=== PATIENT | male | born 1955 | race Caucasian/White ===

== ENCOUNTER → 2016-07-25 | Outpatient (CLI) | payer OTHER ==
[~2016-07-25] VITALS: Ht 152.4 cm; Wt 84.4 kg
[~2016-07-25] MED LIST: ADDERALL 10 MG10 MG; ADDERALL 20 MG20 MG PO; ADDERALL XR 3030 MG PO; ADVAIRDISKUS; B-12250 MCG PO; CYMBALTA; CYMBALTA PO; CYMBALTA30 MG PO; CYMBALTA60 MG PO; EXELON1 EACH TOP; FENTANYL PA12 MCG/HR TP; FENTANYL PA25 MCG/HR TP; FENTANYL PA25 MCG/HR TRANSDERM; FOLIC ACID1 MG PO; HCTZ; HYDROCHLOROTH12.5 M1; HYDROCHLOROTH12.5 MG PO; HYDROCODON-ACE1 EAC5 PO; HYDROCODON-ACE1 EAC7 PO; HYDROCODON-ACE1 EAC8 PO; HYDROCODONE-AP1 EA11 PO; HYDROCODONE-AP1 EAC6 PO; LAMICTAL PO; LAMICTAL XR100 MG PO; LAMICTAL XR200 MG PO; LISINOPRIL40 MG PO; MEDROLDOSEPACK PO; MOBIC15 MG PO; NEXIUM40 MG PO; NORCO 10-325 T1 EACH PO; PRILOSEC 20 MG20 MG; PRISTIQ50 MG PO; PROVENTIL HFA6.7 G1 INH; VITAMIN E400 UNIT; VIVANCE PO; VYVANSE60 MG PO; vivance
--- NOTE | ~2016-07-25 | HPC ---
[facility] [place] [address] PAIN MANAGEMENT CONSULTATION Name: SURY HALEY Room #: REG [facility]#: [id number] Admission: 07/25/16 Attend Phys: Halle Wesley MD Discharge: Date of : 59 Report #: [id number] THIS REPORT FOR: //name// CC: Anthony Wesley DATE OF SERVICE: 07/25/2016 FOLLOWUP COMPLAINT: "They changed my work hours. I am getting up at 3:00 in the morning. This has made it difficult for me to sleep." HISTORY OF PRESENT ILLNESS: The patient is a 61-year-old gentleman who has been followed in the pain clinic in the past because of chronic cervical radicular pain. He has been treated for cervical radiculopathy with opioid medications. He has had his scheduled changed at work. He goes to work at 3:00 in the morning. This has made sleeping quite difficult. When he wakes up in the middle of night, he finds it difficult to fall back to sleep. Overall, he feels that this scheduled will only be going for a couple of months. He would like to try an additional 5 mg of hydrocodone at night to see whether or not this would improve his ability to sleep and be more function on the daytime. PHYSICAL EXAMINATION: Blood pressure is 169/98, pulse 76, respiratory rate 16, and room air O2 saturation is 99%. The patient has pain and discomfort in the cervical area with pain radiating down into his arm on the right side shoulder as well as some left and right occipital pain and discomfort. He rates his pain as an 8/10. He has not fallen since we saw him last. He appears to be taking his medication as prescribed. IMPRESSION: Cervical radiculopathy status post surgery with continue cervical radicular pain. RECOMMENDATIONS: We will continue with the patient's current medical regimen of hydrocodone 10/325 and 5/325 for this month while he is on the new schedule. We will then revert to his schedule of 10/325 for this month and 7.5 mg daily dosing for the 2 remaining months. He will call us if he has any problems with his medications. We would like to thank you for letting us participate in his care. We hope he continues to improve. <ELECTRONICALLY SIGNED> By: Halle Wesley MD 08/26/16 [id number] Halle Weslye MD /nt
[2016-07-25 08:58] VITALS: BP 169/98
== END ==
LOC: PAIN 07:11
DX: M54.12 Radiculopathy, cervical region (principal); I10 Essential (primary) hypertension

== ENCOUNTER → 2016-11-21 | Outpatient (CLI) | payer OTHER ==
[~2016-11-21] VITALS: Ht 175.3 cm; Wt 85.7 kg
[~2016-11-21] MED LIST changes: +LAMICTAL 25 MG25 M1 PO
--- NOTE | ~2016-11-21 | HPC ---
[facility] [place] [address] PAIN MANAGEMENT CONSULTATION Name: SURY HALEY [facility] [id number] Admission: 11/21/16 Attend Phys: Halle Wesley MD Discharge: Date of : 59 Report #: [id number] THIS REPORT FOR: //name// CC: Anthony Wesley He was seen on 11/21/[address] You Wesley. PRIMARY CARE PHYSICIAN: Dr. Anthony Cardenas. FOLLOWUP COMPLAINT: Here for occipital injections. They have been helpful in the past. FOLLOWUP HISTORY: The patient is a 61-year-old gentleman who has been followed in the pain clinic because of cervical radiculopathy. He also suffers from headaches. He finds that occipital injections in the past have been helpful in decreasing the amount of pain and discomfort he had been experiencing. At this juncture, he notices headaches have increased and would like to proceed with an injection. The left side is most problematic. There is some discomfort on the right as well. He has been given scripts for his medications. He has misplaced a couple of the scripts. He will get a police report and provide that to the pain clinic at which time we will reissue medications. We have discussed with the patient the need to get medication from only one source. He should only get opioid medications from the pain clinic. The patient would like to proceed with a trigger point/infiltration and block of the left occipital nerve to help with his pain. PHYSICAL EXAMINATION: Blood pressure 158/90, pulse 113, respiratory rate 18, room air saturation 96%. Height 5 feet 9 inches, weight 85 kilograms. BMI is 27. The patient has pain and discomfort in the left occipital area with pain radiating to the bahai area and posterior eye of the pending side. He notes some soreness on the right side, but is not as problematic as the left. IMPRESSION: 1. Chronic headaches, which are exacerbated by pain in the left occipital area with pain in the parietal area. 2. History of cervical radiculopathy reasonably stable at this juncture. 3. Chronic pain in the cervical area treated with fentanyl patches 25 mcg and hydrocodone 10/325 q. 4-6 hours p.r.n. for pain control. 4. History of some depression. The patient continued to follow up with his psychiatrist/psychologist. GI irritation treated with Nexium, Pulmonary treated with Proventil inhaler. RECOMMENDATIONS: We discussed treatment options with the patient. [facility] [address] [place] [address] PAIN MANAGEMENT CONSULTATION Name: SURY HALEY Room #: REG [facility]#: [id number] Admission: 11/21/16 Attend Phys: Halle Wesley MD Discharge: Date of : 59 Report #: [id number] benefits of an occipital nerve block were again reviewed. Possible complications were discussed. The patient feels that the benefit that he has received in the past from an occipital block has been quite beneficial for a number of months and would like to proceed with another treatment. Diagnosis occipital neuralgia left. Recommendation, we will proceed with an injection of the left occipital nerve. Possible complications of the procedure were reviewed. Possible benefits of the procedure were discussed. The patient elects to proceed. PROCEDURE NOTE: The patient was placed in the prone position. His left occipital area was repaired using a chlorhexidine solution and allowed to dry. A 25-gauge needle was then advanced into the area of the left occipital nerve. The patient states that the palpation and injection were right where the pain and discomfort was located. The pain decreased as a result of the local anesthetic and steroid. Triamcinolone 40 mg and 10 mL 0.5% bupivacaine was injected. The patient's pain decreased to 4 at the time of discharge. He will follow up in the future as needed. We would like to thank you for letting us participate in his care. We hope he continues to improve. By: [id number] Halle Wesley MD /cynthia
[2016-11-21 09:55] VITALS: BP 158/90
== END ==
LOC: PAIN 07:24
DX: M54.16 Radiculopathy, lumbar region (principal); G89.29 Other chronic pain; F32.9 Major depressive disorder, single episode, unspecified

== ENCOUNTER → 2017-01-21 | Outpatient (CLI) | payer OTHER ==
[~2017-01-21] VITALS: Ht 175.3 cm; Wt 84.5 kg
[~2017-01-21] MED LIST changes: -HYDROCHLOROTH12.5 M1; +HYDROCHLOROTH12.5 M1 PO; +HYDROXYZINE HCL25 M1 PO
[2017-01-21 09:24] VITALS: BP 184/100
== END ==
LOC: PAIN 06:50
DX: Z76.0 Encounter for issue of repeat prescription (principal); R51 Headache; M54.12 Radiculopathy, cervical region; F32.9 Major depressive disorder, single episode, unspecified

== ENCOUNTER → 2017-04-10 | Outpatient (CLI) | payer OTHER ==
[~2017-04-10] VITALS: Ht 175.3 cm; Wt 85.3 kg
[~2017-04-10] MED LIST changes: +DURAGESIC25 MCG/HR TRANSDERM; +VOLTAREN GEL 1100 GM TOP
--- NOTE | ~2017-04-10 | HPC ---
[facility] [place] [address] PAIN MANAGEMENT CONSULTATION Name: SURY HALEY [facility]: [facility] [id number] Admission: 04/10/17 Attend Phys: Halle Wesley MD Discharge: Date of : 59 Report #: [id number] THIS REPORT FOR: //name// CC: Anthony Wesley DATE OF SERVICE: 04/10/2017 FOLLOWUP COMPLAINT: Here for medication renewal. FOLLOWUP HISTORY: The patient is a 62-year-old gentleman who has been seen in the pain clinic because of chronic cervical radicular pain. He also suffers from occipital neuralgia. He has had some problems with the fentanyl patches. He finds that they do not adhere as well as certain brands. He would like to have the previous brand renewed. Rates his pain as an 8/10. He notes that the pain is worse when he is sitting at a computer working and with certain movements, which required him to move his head from side to side. PHYSICAL EXAMINATION: Blood pressure 175/105, respiratory rate is 18, room air saturation is 97%, pulse 87. Height 5 feet 9 inches, weight 188 pounds, BMI is 27. The patient has pain and discomfort in the occipital portion of his neck, particularly on the left side. He notes some numbness in his hands and weakness in the affected side as well. IMPRESSION: 1. Cervical radiculopathy. 2. Myofascial pain. 3. History of occipital neuralgia. RECOMMENDATIONS: We discussed treatment options with the patient. We will provide a script for fentanyl patches, [place]ro[place], and hope that these are more efficacious. A script for hydrocodone 7.5 one p.o. q.4-6 h. has been written. The patient will call us if he has any problems with his medications. We would like to thank you for letting us participate in his care. We hope he continues to improve. By: [id number] Halle Wesley MD /MIRZA
[2017-04-10 08:50] VITALS: BP 175/105
== END | disposition home or self-care (01) ==
LOC: PAIN 06:54
DX: M54.12 Radiculopathy, cervical region (principal); M54.81 Occipital neuralgia; M79.1 Myalgia

== ENCOUNTER → 2017-07-08 | Outpatient (CLI) | payer OTHER ==
[~2017-07-08] VITALS: Ht 175.3 cm; Wt 85.1 kg
[~2017-07-08] MED LIST changes: +ALEVE220 M1 PO
--- NOTE | ~2017-07-08 | HPC ---
[facility] [place] [address] PAIN MANAGEMENT CONSULTATION Name: SURY HALEY Room #: REG [facility].#: [id number] Admission: 07/08/17 Attend Phys: Halle Wesley MD Discharge: Date of : 59 Report #: [id number] THIS REPORT FOR: //name// CC: Anthony Wesley DATE OF SERVICE: 07/08/2017 FOLLOWUP COMPLAINT: The pain has been better over the last few days. FOLLOWUP HISTORY: The patient is a 62-year-old gentleman who has been followed in the pain clinic. As you recall, he suffers from occipital pain in his neck as well as cervical radiculopathy. He has undergone epidural steroid injections in the past as needed. He continues to have pain and discomfort and finds that the fentanyl patches and hydrocodone continue to be helpful. He continues to be gainfully employed. He rates his pain as a 5 today. He continues to have some difficulty with turning his head from side to side, some shoulder pain and discomfort, some worsening of pain with changes in weather, and some exacerbation of his pain when he is sitting at a computer. He overall feels that things are going reasonably well. He is not having any problems with his medication. He states that he keeps his medications in a controlled environment. PHYSICAL EXAMINATION: Blood pressure 163/94, pulse 109, respiratory rate 16, room air saturation 97. Height 5 feet 9 inches, weight 187 pounds, BMI is 27. The patient has not fallen since we saw him last. He feels that his pain is less today. He feels that he can progress to a lower level hydrocodone. He feels that he is not needing as much at this juncture. Rather than 5 tablets per day, he feels that 4 tablets per day will be adequate and would like to decrease their use. CURRENT MEDICINE REGIMEN: Naprosyn 220 mg tablets daily, Cymbalta 60 mg, Voltaren gel, fentanyl patches 25 mcg q. 72 hours, hydrocodone 7.5 mg 1 p.o. q.4-6 hours p.r.n. pain, hydroxyzine 25 mg, Lamictal 25 mg, Vyvanse 60 mg, Nexium 40 mg, hydrochlorothiazide 12.5 mg, Proventil 2 puffs p.r.n., Advair Diskus, and Zestril 40 mg. RECOMMENDATIONS: We discussed treatment options with the patient. We have discussed the new guidelines that are coming into effect by the CDC. We will move his medications in the alloted tolerances. We will decrease his hydrocodone by one tablet and a script for hydrocodone 120 tablets 1 p.o. q.4-6 hours p.r.n. pain as well as continue with fentanyl patch 25 mcg q. [address] [address] PAIN MANAGEMENT CONSULTATION Name: SURY HALEY [facility] #: [facility] [id number] Admission: 07/08/17 Attend Phys: Halle Wesley MD Discharge: Date of : 59 Report #: [id number] We would like to thank you for letting us participate in his care. We hope he continues to improve. By: [id number] Halle Wesley MD /MIRZA
[2017-07-08 12:29] VITALS: BP 163/94
== END ==
LOC: PAIN 07:00
DX: M54.12 Radiculopathy, cervical region (principal)

== ENCOUNTER → 2017-11-20 | Outpatient (CLI) | payer OTHER ==
[~2017-11-20] VITALS: Ht 175.3 cm; Wt 93.2 kg
[~2017-11-20] MED LIST changes: +DURAGESIC1 EACH TRANSDERM; +ZANAFLEX4 MG PO
--- NOTE | ~2017-11-20 | HPC ---
[facility] [address] [address] PAIN MANAGEMENT CONSULTATION Name: SURY HALEY Room #: REG [facility] [id number] Admission: 11/20/17 Attend Phys: Halle Wesley MD Discharge: Date of : 59 Report #: [id number] THIS REPORT FOR: //name// CC: Anthony Wesley DATE OF SERVICE: 11/20/2017 FOLLOWUP COMPLAINT: Here for medication renewal. FOLLOWUP HISTORY: The patient is a 62-year-old gentleman, who has been followed in the Pain Clinic for quite a number of years. He suffers from occipital neuralgia. He also has cervical radiculopathy, which can exacerbate the occipital neuralgia. He has undergone occipital nerve blocks in the past and gleaned them very beneficial. He would like to proceed with another set of occipital nerve blocks to help decrease the amount of headaches he is experiencing. Continues to have pain and discomfort in his arms with pain that radiates down into his hands with some weakness and sensory changes. As you recall, he has had surgery in view of the anterior approach in the past. Notes that his pain can be more difficulty with changes in the weather. Sitting at a computer and other activities of daily living can exacerbate this pain and discomfort. He tries to do things of him in the most ergonomic fashion. 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 He recently changed jobs. He has had some changes in his insurance coverage. Because of the changes in his insurance, he was unable to purchase some of his medications. He was using fentanyl patches and hydrocodone. Because of the change in his insurance, he had to "stretch his medications." He would like to continue with fentanyl at 12 mcg per hour. He would also like to continue with hydrocodone 10/325. ALLERGIES: MORPHINE. CURRENT MEDICATIONS: Hydrocodone 10/325 one p.o. q.i.d., fentanyl 12 mcg q.72h., diclofenac gel topical to skin q.i.d., naproxen 220 mg, Cymbalta 60 mg, hydroxyzine 25 mg t.i.d., Lamictal 25 mg total of 50 mg daily, Vyvanse 60 mg, Nexium 40 mg, hydrochlorothiazide 12.5 mg daily, Proventil inhaler 2 puffs p.r.n., Advair Diskus daily, lisinopril 40 mg daily. PAIN CLINIC ASSESSMENT: 1. History of osteoarthritis, problems with his neck with left upper extremity pain. 2. Height 5 foot 9, weight 205 pounds, BMI is 30. 3. VITAL SIGNS: Blood pressure 168/92, pulse 83, respiratory rate 20, room air O2 saturation is 98. [address] [address] PAIN MANAGEMENT CONSULTATION Name: SURY HALEY [facility]: [facility] [id number] Admission: 11/20/17 Attend Phys: Halle Wesley MD Discharge: Date of : 59 Report #: [id number] 4. Pain intensity 8.5. 5. Fall risk. The patient has not fallen in the last 3 months. 6. Blood thinner. The patient is on her blood thinning agents. 7. History of hypertension. The patient is being treated for hypertension. 8. Opioid therapy 6 weeks. The patient is receiving opioid medications from our Pain Clinic. 9. Functional risk assessment tool is 1, which is low risk. 10. Functional assessment tool, 30/70 indicating moderate amount of discomfort and pain in regards to his activities of daily living. 11. Recreational drug use. The patient denies use of recreational drugs. 12. Tobacco: The patient has never smoked tobacco. 13. Alcohol frequency. The patient denies use of alcoholic beverages PHYSICAL EXAMINATION: GENERAL: The patient is a well-developed and well-nourished white male, appears his stated age. He is alert and oriented x 3. His affect is appropriate. Speech is fluent. HEENT: Normocephalic, atraumatic. Extraocular eye muscles intact. Sclerae nonicteric. Hearing within normal limits. Mucous membranes are moist. The patient has pain and soreness in the left as well as in the right occipital area. Palpation in these areas to increased pain and discomfort in the area with some pain radiating to the side of his head and in the perception in the back and temporal areas. NECK: Without adenopathy or JVD. Some limited rotation, flexion and extension of his neck. HEART: Regular rate without murmurs. S1, S2. LUNGS: Clear to auscultation without rhonchi or wheezing. ABDOMEN: Nontender without organomegaly. MUSCULOSKELETAL: Without significant for scoliosis, lordosis, or kyphosis. Upper extremity muscle strength is judged to be 5/5 for the most major muscle groups of the upper extremity. The patient has pain and discomfort in the arm with pain radiating down into the right C6-C7 dermatomal distribution. Lower extremity muscle strength is judged to be 5/5 for the major muscle groups with symmetry and normal sensory findings. IMPRESSION: 1. Cervical radiculopathy involving the right C5-C6 distribution with numbness and weakness down into his hands. 2. Myofascial pain. 3. History of occipital neuralgia which improves with occipital nerve blocks in the past. 4. Chronic pain treated with opioid medications. 5. History of depression in the past. 6. History of gastrointestinal irritation/gastroesophageal reflux disease. RECOMMENDATIONS: We discussed the treatment options with the patient. At this [facility] [address] [place] [address] PAIN MANAGEMENT CONSULTATION Name: SURY HALEY Room #: REG [facility]#: [id number] Admission: 11/20/17 Attend Phys: Halle Wesley MD Discharge: Date of : 59 Report #: [id number] juncture, he finds that his medications have continued to be helpful. The patient was on 25 mcg of fentanyl on a daily basis. He ran out of patches and for about the last few weeks has been without fentanyl. We will restart him at fentanyl 12 mcg q.72h. We will also provide hydrocodone 10/325 one p.o. q.i.d. We have discussed with the patient the CDC requirements for opioid medications. We will continue to try to provide as much pain benefit is possible without over shooting the CDC directives. The patient would like to undergo occipital nerve block. He noticed improvement in the occipital areas with decreased headaches and less pain after occipital nerve blocks in the past. He will return to the Pain Clinic at which time he will then undergo occipital nerve blocks to help with his pain condition. He will call us if he has any problems with his medications. We would like to thank you for letting us participate in his care. We hope he continues to improve. <ELECTRONICALLY SIGNED> By: Halle Wesley MD 11/27/17901 [id number] MD evgeny Perez
[2017-11-20 12:55] VITALS: BP 168/92
== END ==
LOC: PAIN 10-02 11:32
DX: G89.29 Other chronic pain (principal); M54.12 Radiculopathy, cervical region; M79.1 Myalgia; Z79.899 Other long term (current) drug therapy; R20.0 Anesthesia of skin; R53.1 Weakness

== ENCOUNTER → 2017-12-25 | Outpatient (CLI) | payer OTHER ==
[~2017-12-25] VITALS: Ht 175.3 cm; Wt 91.8 kg
--- NOTE | ~2017-12-25 | HPC ---
[facility] [place] [address] PAIN MANAGEMENT CONSULTATION Name: SURY HALEY Room #: REG [facility]#: [id number] Admission: 12/25/17 Attend Phys: Halle Wesley MD Discharge: Date of : 59 Report #: [id number] THIS REPORT FOR: //name// CC: Anthony Wesley DATE OF SERVICE: 12/25/2017 CHIEF COMPLAINT: Here for occipital nerve blocks. "Still having pain in back of my head and headaches". FOLLOWUP HISTORY: The patient is a 62-year-old gentleman who has been followed in the Pain Clinic because of chronic pain in the neck. He also has occipital headaches. Over time, he has undergone epidural steroid injections in the cervical area and found those beneficial. At this juncture, he is having some pain and discomfort in the left as well as the right occipital area. Right more problematic than the left. In the past when he has undergone these treatments, he has noted significant benefit from the procedure and has returned today because of the continued headache, pain in the occipital areas. He continues to take his medications as prescribed for chronic pain. He is having no problems with the medications. He feels that the hydrocodone and fentanyl are helpful. He has noted a change in the protocol regarding dispensation of his medications by his insurance company. ALLERGIES: MORPHINE. CURRENT MEDICATIONS: Hydrocodone 10/325 one p.o. q.i.d., fentanyl 12 mcg q.72 hours, diclofenac gel applied to the skin q.i.d., Naprosyn 220 mg, Cymbalta 60 mg, hydroxyzine 25 mg t.i.d., Lamictal 25 mg a total of 50 mg daily, Vyvanse 60 mg, Nexium 40 mg, hydrochlorothiazide 12.5 mg, Proventil inhaler 2 puffs p.r.n., Advair Diskus daily, and lisinopril 40 mg daily. PAIN CLINIC ASSESSMENT: 1. History of osteoarthritis in his upper extremities. The patient has not been treated for rheumatoid arthritis. 2. Height 5 feet 9 inches, weight 202 pounds, BMI is 29.9. 3. Vital signs: Blood pressure 171/101, pulse 92, respiratory rate 16, room air saturation is 99. 4. Pain intensity 03/29. 5. Fall risk. The patient has not fallen in the last 3 months. 6. Blood thinner. The patient is not on a blood thinning medication. 7. Hypertension. The patient is being treated for hypertension. 8. Opioid therapy greater than 6 weeks. The patient is on opioid therapy and gets his medication from one source the Pain Clinic. 9. Risk assessment tool provided 1, indicating low risk. [address] [address] PAIN MANAGEMENT CONSULTATION Name: EUNICETIANSURY [id number] Admission: 12/25/17 Attend Phys: Halle Wesley MD Discharge: Date of : 59 Report #: [id number] 10. Functional assessment tool 30, showing moderate problems with activities of daily living secondary to pain. 11. Recreational drug use: The patient denies use of recreational drugs. 12. Tobacco: The patient denies use of tobacco. 13. Alcohol: The patient denies use of alcoholic beverages. PHYSICAL EXAMINATION: GENERAL: The patient is a well-developed, well-nourished white male. He appears his stated age. He is alert and oriented x 3. His affect is appropriate. His speech is fluent. HEENT: Normocephalic, atraumatic. Extraocular eye muscles intact. Sclerae nonicteric. The patient has pain and discomfort in the left as well as the right occipital area with pain that radiates to the temporal areas and over the occipital portion of his head. NECK: Without adenopathy or JVD. Some limitation in rotation, flexion and extension of his neck. HEART: Regular rate without murmurs. Normal S1, S2. RESPIRATORY: Clear to auscultation without rhonchi or wheezing. ABDOMEN: Nontender, without organomegaly. MUSCULOSKELETAL: Without significant scoliosis, kyphosis or lordosis. The upper extremity muscle strength is judged to be 5/5 for the major muscle groups. Sensation of the upper extremities within normal limits. Has had some discomfort with certain activities with pain radiating down in the C6-C7 dermatomal distribution. Lower extremity muscle strength is judged to be 5/5 with symmetry without sensory changes. IMPRESSION: 1. Cervical radiculopathy C5-C6 with occasional weakness in his right hand. 2. Occipital neuralgia bilaterally, right greater than left. 3. Myofascial pain. 4. History of chronic pain treated with opioid therapy. 5. History of depression. 6. History of gastrointestinal/gastric reflux disease. 7. Notes restless leg tendencies after taking Flexeril. RECOMMENDATIONS: We discussed treatment options with the patient. They include injection of the occipital areas for relief of the occipital neuralgia. Injections in the past have been beneficial. He has returned today for this treatment course. He also notes some muscle spasms. He has used Flexeril in the past, but noticed some problems with restless legs syndrome thereafter. He would like to proceed with the trigger point injections. He would also like another muscle relaxant. We will try Zanaflex and note its efficacy. The patient will continue with his current medications. We will proceed with the injection. Possible complications were discussed. They could include but are not limited to infection, increased muscle soreness, headache, bleeding, worsening of pain, no improvement in pain. [facility] [address] [place] [address] PAIN MANAGEMENT CONSULTATION Name: EDWARDNAVITIANSURY KITTYDEBI Room #: REG [facility]#: [id number] Admission: 12/25/17 Attend Phys: Halle Wesley MD Discharge: Date of : 59 Report #: [id number] PROCEDURE NOTE: The patient was placed in the prone position. His neck and the occipital areas; left and right were sterilely cleansed using chlorhexidine solution and allowed to dry. The left occipital area was palpated. A reproduction of pain and discomfort in this area was noted. A 25-gauge needle was then advanced into the area of discomfort. The patient states that this reproduced his discomfort. Aspiration was negative. A total of 8 mL of 0.5% bupivacaine and 40 mg triamcinolone was injected in this area. There was no bleeding. The contralateral right side was then identified. This area was then palpated. The area of discomfort in the occipital area was noted. A 25-gauge needle was then advanced into the area. Aspiration was performed. There was no bleed. A total of 8 mL of 0.5% bupivacaine with 40 mg triamcinolone was injected. The patient tolerated the procedure well. There were no complications. He will try the Zanaflex 4 mg 1 p.o. t.i.d. with hopes that this will be helpful with muscle spasms, which he has experienced in the past. Hopefully, he will not experience the restless leg syndrome he has experienced with use of Flexeril. <ELECTRONICALLY SIGNED> By: Halle Wesley MD 12/30/17 1332 [id number] Halle Wesley MD /nt
[2017-12-25 08:05] VITALS: BP 171/101
== END | disposition home or self-care (01) ==
LOC: PAIN 06:53
DX: M54.81 Occipital neuralgia (principal); M54.12 Radiculopathy, cervical region; M79.1 Myalgia; G89.29 Other chronic pain; I10 Essential (primary) hypertension; Z79.891 Long term (current) use of opiate analgesic; Z87.19 Personal history of other diseases of the digestive system; Z86.59 Personal history of other mental and behavioral disorders; Z88.8 Allergy status to other drugs, medicaments and biological substances; Z79.899 Other long term (current) drug therapy

== ENCOUNTER → 2018-01-22 | Outpatient (CLI) | payer OTHER ==
[~2018-01-22] VITALS: Ht 175.3 cm; Wt 88.0 kg
--- NOTE | ~2018-01-22 | HPC ---
[facility] [place] [address] PAIN MANAGEMENT CONSULTATION Name: SURY HALEY Room #: REG [facility]#: [id number] Admission: 01/22/18 Attend Phys: Halle Wesley MD Discharge: Date of : 59 Report #: [id number] THIS REPORT FOR: //name// CC: Anthony Wesley DATE OF SERVICE: 01/22/2018 FOLLOWUP COMPLAINT: Here for medications. Occipital nerve blocks, certainly were helpful. FOLLOWUP HISTORY: The patient is a 62-year-old gentleman who has been followed in the pain clinic because of chronic pain involving his neck. Also, has occipital neuralgia. He has undergone occipital blocks at the last visit. He has returned today. He finds his headaches have improved. He thinks that the injections were worse while. He has had no complication from their use. Feels his medications continue to be helpful and would like to continue with his opioid medications. He is aware of the possible complication of use of chronic opioid medications. There is possibility of decreased effectiveness secondary to intolerance. He is aware of the possibility of dependence that can develop. He feels that his medications are helpful. He continues to work on a regular basis. There is no clouding of sensorium. Feels that he would have a much more difficult time working without their use. He has returned for renewal of these medications. Keeps his medications in a guarded area. ALLERGIES: MORPHINE. CURRENT MEDICATIONS: Hydrocodone 10/325 mg one p.o. q.i.d., Fentanyl 12 mcg q. 72 hours, diclofenac gel applied to the skin q.i.d., Naprosyn 220 mg, Cymbalta 60 mg, hydroxyzine 25 mg t.i.d., Lamictal 25 mg total of 50 mg daily, Vyvanse 60 mg, Nexium 40 mg, hydrochlorothiazide 12.5 mg, Proventil inhaler 2 puffs p.r.n., Advair Diskus daily, lisinopril 40 mg daily. PAIN CLINIC ASSESSMENT: 1. History of osteoarthritis in the upper extremities. The patient has had surgery in his neck. The patient is not being treated for rheumatoid arthritis. 2. Height 5 feet 9 inches, weight 194 pounds, BMI is 28. 3. Vital signs: Blood pressure 131/91, pulse 106, respiratory rate 16, room air saturation 98%. 4. Pain intensity 12/27. 5. Fall risk. The patient has not fallen in the last 3 months. 6. Blood thinner. The patient is not on a blood thinning medication. 7. Hypertension. The patient is being treated for hypertension. 8. Opioid therapy greater than 6 weeks. The patient is receiving his medications from one source, [place] [address] PAIN MANAGEMENT CONSULTATION Name: EUNICETIANSURY Room #: REG CL [facility]#: [id number] Admission: 01/22/18 Attend Phys: Halle Wesley MD Discharge: Date of : 59 Report #: [id number] 9. Risk assessment tool. Low for opioid use. 10. Functional assessment tool 30/70 in the past. 11. Recreational drug use. The patient denies use of recreational drugs. 12. Blood Tobacco: The patient denies use of tobacco use. 13. Alcohol: The patient denies frequent use of alcoholic beverages. PHYSICAL EXAMINATION: GENERAL: The patient is a well-developed, well-nourished white male. Appears his stated age. He is alert and oriented x 3. His affect is appropriate. Speech is fluent. HEENT: Normocephalic, atraumatic. Extraocular eye muscles intact. Sclerae nonicteric. The patient has less pain and discomfort in the occipital areas as a result of having the injections performed at the last visit. NECK: Without adenopathy or JVD. Some limited ____ and rotation and flexion secondary to his past history of surgery. HEART: Regular rate. S1 and S2. RESPIRATORY: Clear to auscultation without rhonchi or wheezing. ABDOMEN: Nontender, without organomegaly. MUSCULOSKELETAL: Without significant scoliosis, kyphosis or lordosis. Upper extremity muscle strength is judged to be 5/5 with symmetry. The patient has some pain and discomfort in the C6-C7 distribution. Lower extremity muscle strength is judged to be 5/5 with symmetry and without sensory changes. IMPRESSION: 1. Cervical radiculopathy, C5/C6 with occasional weakness in the right hand. 2. Occipital neuralgia bilaterally, right greater than left. 3. Myofascial pain. 4. History of chronic pain treated with opioid therapy. 5. History of depression. 6. History of gastroesophageal reflux disease. 7. Restless leg syndrome, patient finds Flexeril helpful. RECOMMENDATIONS: We discussed treatment options with the patient. We will continue with his current medications. He found that the occipital nerve injections were helpful. Hopefully, things continue to go well for him for quite some time. He will call us if he has any problem with his medications. A script for his medications has been written. He will call us if he has any problems. By: [id number] Halle Wesley MD /PMT
[2018-01-22 08:57] VITALS: BP 133/91
== END ==
LOC: PAIN 06:50
DX: M54.12 Radiculopathy, cervical region (principal); M54.81 Occipital neuralgia; M79.1 Myalgia

== ENCOUNTER → 2018-04-16 | Outpatient (CLI) | payer OTHER ==
[~2018-04-16] VITALS: Ht 175.3 cm; Wt 91.5 kg
--- NOTE | ~2018-04-16 | HPC ---
[facility] [place] [address] PAIN MANAGEMENT CONSULTATION Name: SURY HALEY Room #: REG [facility]#: [id number] Admission: 04/16/18 Attend Phys: Halle Wesley MD Discharge: Date of : 59 Report #: [id number] THIS REPORT FOR: //name// CC: Anthony Wesley DATE OF SERVICE: 04/16/2018 FOLLOWUP COMPLAINT: Here for medications. HISTORY OF PRESENT ILLNESS: The patient is a 63-year-old gentleman who has been followed in the pain clinic for quite some time. He suffers from cervical radicular pain. He has had cervical fusion. His pain waxes and wanes. He has occipital pain at times. He has returned today for renewal of his medications. Overall, he is not having any complications with the medications. He feels that they are helpful. He is able to think clearly. He is aware of the possible dependency that one can develop as a result of using opioid medications. We have had this conversation on numerous occasions. We also have discussed the possibility of lessening of opioid effectiveness because of tolerance. The patient has returned today and we would like to continue with his medications. He was walking to his house. Fractured his "little toe." Notes that it has been quite sore and irritated. He is aware that casts are not placed on toes. Overall, he is trying to keep it stable in his shoe with adequate tape and support. ALLERGIES: MORPHINE. CURRENT MEDICATIONS: Hydrocodone 10/325 one p.o. q.i.d., fentanyl patch 12 mcg q. 72 hours, diclofenac gel applied to the skin q.i.d., Naprosyn 220 mg, Cymbalta 60 mg, hydroxyzine 25 mg t.i.d., Lamictal 25 mg total of 50 mg daily, Vyvanse 60 mg, Nexium 40 mg, hydrochlorothiazide 12.5 mg, Proventil inhaler 2 puffs p.r.n., Advil Diskus daily, lisinopril 40 mg daily. PAIN CLINIC ASSESSMENT/PQRS: 1. History of osteoarthritis in the upper extremities. The patient has had a fusion in his neck. He is not being treated for rheumatoid arthritis. 2. Height 5 feet 9 inches, weight 201 pounds, BMI is 29. 3. Vital signs: Blood pressure 143/93, pulse 107, respiratory rate 18, room air saturation is 100%. 4. Pain intensity 6/10, can rise to 8-9/10. 5. Fall history: The patient has not fallen in the last 3 months. Did fracture his right toe while walking to the house and kicking an item. 6. Blood thinner. The patient is not on a blood thinning medication. 7. Hypertension. The patient is being treated for hypertension. 8. Opioid therapy greater than 6 weeks. The patient is receiving medications from the pain clinic as one source. [address] [address] PAIN MANAGEMENT CONSULTATION Name: EDWARDNAVITIANSURY [id number] Admission: 04/16/18 Attend Phys: Halle Wesley MD Discharge: Date of : 59 Report #: [id number] 9. Risk assessment tool, low risk 1. 10. Functional assessment tool . 11. Recreational drug use: The patient denies. 12. Smoking. The patient has never smoked. 13. Alcohol: The patient denies use of tobacco. PHYSICAL EXAMINATION: GENERAL: The patient is a well-developed, well-nourished white male. Appears his stated age. He is alert and oriented x 3. His affect is appropriate. Speech is fluent. HEENT: Normocephalic, atraumatic. Extraocular eye muscles intact. Sclerae nonicteric. The patient has complained of some discomfort in his little toe. NECK: Without adenopathy or JVD. Some limitation with extension, flexion and rotation secondary to history of cervical fusion. HEART: Regular rate. S1 and S2. RESPIRATORY: Clear to auscultation without rhonchi or wheezing. ABDOMEN: Nontender without organomegaly. MUSCULOSKELETAL: Without significant scoliosis, kyphosis or lordosis. Upper extremity muscle strength is judged to be 5/5 with symmetry and muscle bulk. The patient has some pain and discomfort in the C6-C7 distribution. Lower extremity muscles are judged to be 5/5 with symmetry and without sensory change. IMPRESSION: 1. Cervical radiculopathy, C5-C6 with occasional weakness in the right hand. 2. Occipital neuralgia bilaterally, right greater than left. 3. Myofascial pain. 4. History of chronic pain treated with opioid therapy. 5. History of depression. 6. History of gastroesophageal reflux disease. 7. Restless legs syndrome. The patient finds Flexeril helpful. RECOMMENDATIONS: We discussed treatment options with the patient. At this juncture, we will continue with his current medical regimen. He is aware of the possible complications of opioid use. He is aware that 72,000 people last year as a result of overdose on medications. He feels his medications are helpful. He would like to keep them to help control the pain. Keeps his medications in a controlled environment. We would like to thank you for letting us participate in his care. He will call us if he has any concerns. <ELECTRONICALLY SIGNED> By: Halle Wesley MD 05/03/18 1124 [id number] [id number] Halle Wesley MD /nt
[2018-04-16 10:38] VITALS: BP 143/93
== END ==
LOC: PAIN 10:09
DX: M54.12 Radiculopathy, cervical region (principal); M54.81 Occipital neuralgia; M79.1 Myalgia; F32.9 Major depressive disorder, single episode, unspecified; K21.9 Gastro-esophageal reflux disease without esophagitis; G25.81 Restless legs syndrome; G89.29 Other chronic pain; Z79.899 Other long term (current) drug therapy

== ENCOUNTER → 2018-07-02 | Outpatient (CLI) | payer OTHER ==
[~2018-07-02] VITALS: Ht 175.3 cm; Wt 93.5 kg
--- NOTE | ~2018-07-02 | HPC ---
[facility] [place] [address] PAIN MANAGEMENT CONSULTATION Name: SURY HALEY [facility] [id number] Admission: 07/02/18 Attend Phys: Halle Wesley MD Discharge: Date of : 59 Report #: [id number] THIS REPORT FOR: //name// CC: Anthony Wesley DATE OF SERVICE: 07/02/2018 FOLLOWUP COMPLAINT: "Here for medication renewal and I am going to go to [place] with my son in about a week or two." HISTORY OF PRESENT ILLNESS: The patient is a 63-year-old gentleman who has been followed in the Pain Clinic. As you recall, he has some cervical problems. He has undergone cervical fusion. He continues to have pain, which is still problematic and which he is treated for in the Pain Clinic. He finds his medications overall are helpful. She has had no complications since we saw him last. He continues to have some limitations in his neck with some pain and discomfort down his shoulders and arm. He has not fallen since we saw him last. Overall, he thinks his medications are helpful. He continues to have some pain in the back of his head and neck. He also had some pain in his right toe. Overall, today, his pain is rated as 7/10. He notes that use of medications, repositioning his neck, cold, heat and TENS are still efficacious. ALLERGIES: MORPHINE. CURRENT MEDICATIONS: Hydrocodone 10/325 one p.o. q.i.d., fentanyl patch 12 mcg q. 72 hours, diclofenac gel applied to the skin q.i.d., Naprosyn 220 mg, Cymbalta 60 mg, hydroxyzine 25 mg t.i.d., Lamictal 25 mg total of 50 mg daily, Vyvanse 60 mg, Nexium 40 mg, hydrochlorothiazide 12.5 mg, Proventil inhaler 2 puffs p.r.n., Advair Diskus daily, and lisinopril 40 mg daily. PAIN CLINIC ASSESSMENT AND PQRS: 1. History of osteoarthritis involving the upper extremity. The patient has had a fusion of his neck. He is not being treated for rheumatoid arthritis. 2. Height 5 feet 9 inches, weight 206 pounds, BMI is 30. 3. Vital signs: Blood pressure 138/86, pulse 94, respiratory rate 16, room air saturation 98%. 4. Pain intensity: 7/10. 5. Fall risk: The patient has not fallen in the last 3 months. 6. Blood thinner: The patient is not on a blood thinning medication. 7. Hypertension: The patient is being treated for hypertension. 8. Opioid therapy: Low risk for opioid use. The patient receives his opioid medication from one source from the Pain Clinic. 9. Functional assessment tool: . 10. Recreational drugs: The patient denies use of recreational drugs. [address] [address] PAIN MANAGEMENT CONSULTATION Name: EDWARDNAVITIANSURY TANGDEBI Room #: REG [facility] Tita#: [id number] Admission: 07/02/18 Attend Phys: Halle Wesley MD Discharge: Date of : 59 Report #: [id number] 11. Tobacco: The patient denies use of tobacco. 12. Alcohol. The patient denies use of alcoholic beverages. PHYSICAL EXAMINATION: GENERAL: The patient is a well-developed, well-nourished, white male. He appears his stated age. He is alert and oriented x 3. His affect is appropriate. Speech is fluent. HEENT: Normocephalic, atraumatic. Extraocular eye muscles intact. Sclerae nonicteric. Mucous membranes are moist. NECK: With reasonable range of motion. Some flexion, extension, and rotation is limited secondary to surgical fusion. HEART: Regular rate, S1 and S2. RESPIRATORY: Without rhonchi or rales. ABDOMEN: Nontender without organomegaly. MUSCULOSKELETAL: Without significant scoliosis, kyphosis or lordosis. Upper extremity muscle strength is judged to be 5-/5 with symmetry and bulk. Lower extremity muscle strength is 5/5 without sensory changes. IMPRESSION: 1. Cervical radiculopathy at C5-C6 with occasional weakness in the right hand. 2. Occipital neuralgia bilaterally, right greater than left. 3. Myofascial pain. 4. History of chronic pain treated with opioid therapy. 5. History of depression. 6. History of gastroesophageal reflux. 7. Restless leg syndrome. The patient finds Flexeril helpful. RECOMMENDATIONS: We discussed treatment options with the patient. We will continue with his current medications. He will continue to monitor his GI tract given that he has had some problems with aspirin-type medications. He will continue with his opioid medications, a script has been provided. The patient is scheduled to go to [place]; hopefully, he has a good trip. Hopefully, he does not note any worsening of his respiratory status. He will call us if he has any problems. We would like to thank you for letting us participate in his care. We hope he continues to improve. By: [id number] Halle Wesley MD /nt
[2018-07-02 08:06] VITALS: BP 138/86
== END ==
LOC: PAIN 05:49
DX: M54.12 Radiculopathy, cervical region (principal); M54.81 Occipital neuralgia; M79.18 Myalgia, other site; K21.9 Gastro-esophageal reflux disease without esophagitis; G25.81 Restless legs syndrome; I10 Essential (primary) hypertension; Z79.899 Other long term (current) drug therapy; Z88.5 Allergy status to narcotic agent; Z98.890 Other specified postprocedural states

== ENCOUNTER → 2018-08-20 | Outpatient (CLI) | payer BC, OTHER ==
[~2018-08-20] VITALS: Ht 175.3 cm; Wt 94.8 kg
[~2018-08-20] MED LIST changes: +TRAZODONE HCL50 MG PO
[2018-08-20 12:32] VITALS: BP 149/80
--- NOTE | 2018-08-20 12:32 | NUR ---
Document wound assessment on appropriate Wound Pressure, Monitor intervention!
--- NOTE | 2018-08-20 12:33 | NUR ---
Pain Clinic Assessment: 1. History of Osteoarthritis: Left Upper Extremity NECK History of Rheumatoid Arthritis: Not Applicable 2. Height: 5 ft. 9 in. 175.3 cm. Weight: 209.0 lb. oz. 94.802 kg. Patient's BMI: 30.8 3. Vital Signs: BP: 149/80 Pulse: 105 Resp: 16 Temp: 02 Sat: 95 ECG Mon: 4. Pain Intensity: 8 5. Fall Risk: Dizziness: N Needs help standing or walking: N Fallen in the last 3 months: N Fall risk comments: 6. Patient on Blood Thinner: None 7. History of Hypertension: Y 8. Opioid Therapy greater than 6 weeks: Y Opiate Contract Signed: 02/21/16 9. Risk Assessment Tool Provided: 1-low risk 10. Functional Assessment Tool: 11. Recreational Drug Use: Never Drug Type: Tobacco Use: Never Smoker Tobacco Type: Amount or Packs/day: How Many Years: Alcohol Use: No Frequency: Quant:
--- NOTE | 2018-08-27 16:49 | HPC ---
[facility] [address] [place] [address] PAIN MANAGEMENT CONSULTATION Name: SURY HALEY Room #: REG LISSY Tita#: [id number] Admission: 08/20/18 Attend Phys: Halle Wesley MD Discharge: Date of : 59 Report #: [id number] THIS REPORT FOR: //name// CC: Anthony Wesley DATE OF SERVICE: 08/20/2018 CHIEF COMPLAINT: "Here for medication renewal, feel some crackling sensation in my neck." HISTORY: The patient is a 63-year-old gentleman who has been followed in the pain clinic for quite a number of years. As you recall, has history of cervical radiculopathy. He has undergone cervical fusion in the past. He has noticed over the last few months some increased popping in his neck. Notes that when the experience of popping, he may have a 4-5 second feeling of discomfort which quickly resolves. Denies any trauma to his neck or new trauma to the neck. He feels that his medications were helpful. Feels that the arthritic component in the neck may be getting somewhat worse. Overall, he is not having any more pain radiating down into his arms or his hands than before this popping sensation. Feels at this juncture that the popping sensation may be improving. He has not fallen since we saw him last. He feels his medications are helpful. His is present and feels that overall things are going reasonably well. Does continue to use his TENS unit. Does use medications, repositioning of the neck, hot and cold, Compex. ALLERGIES: MORPHINE. CURRENT MEDICATIONS: Hydrocodone 10/325 one p.o. q.i.d., fentanyl patches 12 mcg every 72 hours, diclofenac applied to the skin q.i.d., Naprosyn 220 mg, Cymbalta 60 mg, hydroxyzine t.i.d., Lamictal 25 mg total of 50 mg daily, Vyvanse 60 mg, Nexium 40 mg, hydrochlorothiazide 12.5 mg, Proventil inhaler 2 puffs p.r.n., Advair Diskus daily, lisinopril 40 mg daily. PAIN CLINIC ASSESSMENT/PQRS: 1. History of osteoarthritis involving the upper extremity and the neck. The patient has had a fusion. He has not been treated for rheumatoid arthritis. 2. Height 5 feet 9 inches, weight 209 pounds, BMI is 30. 3. Vital signs: Blood pressure 149/80, pulse 105, respiratory rate 16, room air saturation 95%. 4. Pain intensity 810. 5. Fall risk. The patient has not fallen in the last 3 months. 6. Blood thinner. The patient is not on a blood thinning medication. 7. Hypertension. The patient is being treated for hypertension. 8. Opioid therapy greater than 6 weeks. The patient is receiving this medication from one source, the pain clinic. [address] [address] PAIN MANAGEMENT CONSULTATION Name: SURY HALEY [facility] [id number] Admission: 08/20/18 Attend Phys: Halle Wesley MD Discharge: Date of : 59 Report #: [id number] 9. Risk assessment tool, low for opioid use. 10. Functional assessment tool, . 11. Recreational drug use. The patient denies use of recreational drugs. 12. Tobacco: The patient denies use of tobacco. 13. Alcoholic beverages. The patient denies use of alcoholic beverages on a regular basis. PHYSICAL EXAMINATION: GENERAL: The patient is a well-developed, well-nourished white male. Appears his stated age. He is alert and oriented x 3. His affect is appropriate. Speech is fluent. HEENT: Normocephalic, atraumatic. Extraocular eye muscles intact. The patient's and grandchild are present. HEENT: Normocephalic, atraumatic. Extraocular eye muscles intact. Sclerae nonicteric. Mucous membranes are moist. The patient is able to move his neck in a reasonable range of motion with flexion, extension, left and right lateral rotation, some limitation secondary to his history of fusion. Forward flexion was not very problematic. Cervical extension did cause some increased discomfort without significant pain radiating down into the arms or fingers. HEART: Regular rate. RESPIRATORY: Without rhonchi or rales. ABDOMEN: Nontender. MUSCULOSKELETAL: Without significant scoliosis, kyphosis or lordosis. Muscle strength in the upper extremity joints felt to be 5/-5 for the major muscle groups with symmetry. Lower extremity muscle group 5/5 without sensory changes. IMPRESSION: 1. Cervical radiculopathy, C5-C6 with occasional weakness in the right arm. 2. Occipital neuralgia bilaterally, right generally greater than left. 3. Myofascial pain. 4. History of chronic pain treated with opioid therapy. 5. History of depression. 6. Gastroesophageal reflux. 7. Restless leg syndrome, finds Flexeril helpful. RECOMMENDATIONS: We discussed treatment options with the patient. At this juncture, even though he is having some popping sensation, he is not having significant neuropathic changes in his upper extremity. We explained to him that we could get his MRI, but if he is not considering surgery, I do not think that it would be hernandez investment of money at this juncture. Also, the patient is not having significant changes in his neuro exam in the upper extremity. A script for his medications have been rewritten. He will continue with a fentanyl patch 12 mcg every 72 hours, diclofenac gel to the affected area. As well as the patient will be given an additional 7.5 mg hydrocodone to take daily for a total of 150 tablets per month. He will call us if he has any concerns. [facility] [address] [place] [address] PAIN MANAGEMENT CONSULTATION Name: EDWARDNAVITIANSURY ESTEVES Room #: REG [facility]#: [id number] Admission: 08/20/18 Attend Phys: Halle Wesley MD Discharge: Date of : 59 Report #: [id number] We would like to thank you for letting us participate in his care. We hope he continues to improve. <ELECTRONICALLY SIGNED> By: Halle Wesley MD 08/27/18 1649 1832 1950 Halle Wesley MD /nt
== END ==
LOC: PAIN 08-06 09:09
DX: M54.12 Radiculopathy, cervical region (principal); M79.18 Myalgia, other site; M54.81 Occipital neuralgia; G89.29 Other chronic pain; G25.81 Restless legs syndrome; K21.9 Gastro-esophageal reflux disease without esophagitis; F32.9 Major depressive disorder, single episode, unspecified; Z79.899 Other long term (current) drug therapy; Z79.891 Long term (current) use of opiate analgesic

== ENCOUNTER → 2018-11-17 | Outpatient (CLI) | payer BC, OTHER ==
[~2018-11-17] VITALS: Ht 175.3 cm; Wt 90.5 kg
--- NOTE | ~2018-11-17 | HPC ---
[facility] [address] [place] [address] PAIN MANAGEMENT CONSULTATION Name: SURY HALEY Room #: REG LISSY YooCollins#: [id number] Admission: 11/17/18 ������������������ Attend Phys: Halle Wesley MD Discharge: ������������������ Date of : 59 Report #: [id number] THIS REPORT FOR: //name// CC: Anthony Wesley DATE OF SERVICE: 11/17/2018 CHIEF COMPLAINT: Pain increased after doing some lat pulls with the bar over my head today. I have had pain shooting down in my neck and arm. HISTORY: The patient is a 63-year-old gentleman who has been followed in the pain clinic. He does have cervical problems. He has had cervical fusion. He has been exercising. States that today he was doing some exercises with weights over his head. He was pulling down on the latissimus dorsi bar. He noted some increased pain in his neck with some shooting pain down into his arm. He feels that it is improved somewhat. It was quite jolting when he underwent the initial event. Feels that is improving somewhat. He is considering going home, placing an ice pack on it as well as some heat. Rates his pain today as an 8/10. Pain radiates down into both arms. He describes it as excruciating. ALLERGIES: MORPHINE. CURRENT MEDICATIONS: Hydrocodone 10/325 one p.o. q.i.d., fentanyl patch 12 mcg q. 72 hours, diclofenac gel applied to the skin q.i.d., Naprosyn 220 mg, Cymbalta 60 mg, hydroxyzine 25 mg t.i.d., Lamictal 25 mg total of 50 mg daily, Vyvanse 60 mg, Nexium 40 mg, hydrochlorothiazide 12.5 mg, Proventil inhaler 2 puffs p.r.n., Advair Diskus daily, and lisinopril 40 mg daily. PAIN CLINIC ASSESSMENT/PQRS 1. History of osteoarthritis. The patient has arthritic change in his upper neck and has had a fusion. He is not being treated for rheumatoid arthritis. 2. Height 5 feet 9 inches, weight is 199 pounds, BMI is 29.5. 3. Vital signs: Blood pressure 107/69, pulse 93, respiratory rate 16, room air saturation 97%. 4. Pain intensity 01/26. 5. Fall risk. The patient has not fallen in the last 3 months. 6. Blood thinner. The patient is not on a blood thinning medication. 7. Hypertension. The patient is being treated for hypertension. 8. Opioids greater than 6 weeks. The patient received medication from 1 source, the pain clinic. 9. Risk assessment tool, low for opioid risk. 10. Functional assessment tool . 11. Recreational drug use. The patient denies use of recreational drugs. 12. Tobacco: The patient denies use of tobacco. [address] [address] PAIN MANAGEMENT CONSULTATION Name: SURY HALEY Room #: [facility] [id number] Admission: 11/17/18 ������������������ Attend Phys: Halle Wesley MD Discharge: ������������������ Date of : 59 Report #: [id number] 13. Alcohol: The patient denies frequent use of alcoholic beverages. PHYSICAL EXAMINATION: GENERAL: The patient is a well-developed, well-nourished white male. Appears his stated age. He is alert and oriented x 3. Affect is appropriate. Speech is fluent. HEENT: Normocephalic, atraumatic. Extraocular eye muscles intact. Sclerae nonicteric. Mucous membranes are moist. NECK: Without adenopathy or JVD. Does complain of pain and discomfort in his neck with pain that is radiating down into both arms. HEART: Regular rate. S1, S2. RESPIRATORY: Without rhonchi or rales. ABDOMEN: Nontender. MUSCULOSKELETAL: Upper extremity muscle strength 5-/5, lower extremity 5/5 without sensory changes in the lower extremities. The patient without significant scoliosis, kyphosis, or lordosis. IMPRESSION: 1. Cervical radiculopathy, C5-C6 with occasional weakness in the right hand. 2. Occipital neuralgia, bilateral right greater than left. 3. Myofascial pain. 4. History of chronic pain treated with opioid therapy. 5. History of depression. 6. History of gastroesophageal reflux. 7. Restless leg syndrome. The patient finds Flexeril helpful. RECOMMENDATIONS: We will continue with the patient's current medication. A script for a Medrol Dosepak has been written. The patient did note some increased pain after performing some activities with overhead pulling at the gym. Hopefully, this will help to decrease some of the swelling and discomfort that he is experiencing before it becomes more problematic. He will call us if he has any concerns. We would like to thank you for letting us participate in his care. He is aware that opioid medications can be less effective over time secondary to development of tolerance. He is aware that 70,000 people last year as a result of overdose with their medication. States that he has taken the medication as prescribed and keeps it in a guarded area. ��������������������������������������������� ���������������������������������������� By: ��������������������������������������������� 1356 11 Halle Wesley MD /PMT
[2018-11-17 10:36] VITALS: BP 107/69
--- NOTE | 2018-11-17 10:39 | NUR ---
Pain Clinic Assessment: 1. History of Osteoarthritis: Left Upper Extremity NECK History of Rheumatoid Arthritis: Not Applicable 2. Height: 5 ft. 9 in. 175.3 cm. Weight: 199.6 lb. oz. 90.538 kg. Patient's BMI: 29.5 3. Vital Signs: BP: 107/69 Pulse: 93 Resp: 16 Temp: 02 Sat: 97 ECG Mon: 4. Pain Intensity: 8 5. Fall Risk: Dizziness: N Needs help standing or walking: N Fallen in the last 3 months: N Fall risk comments: 6. Patient on Blood Thinner: None 7. History of Hypertension: Y 8. Opioid Therapy greater than 6 weeks: Y Opiate Contract Signed: 02/21/16 9. Risk Assessment Tool Provided: 1-low risk 10. Functional Assessment Tool: 11. Recreational Drug Use: Never Drug Type: Tobacco Use: Never Smoker Tobacco Type: Amount or Packs/day: How Many Years: Alcohol Use: No Frequency: Quant:
== END ==
LOC: PAIN 07:11
DX: I10 Essential (primary) hypertension (principal); M19.90 Unspecified osteoarthritis, unspecified site; M54.12 Radiculopathy, cervical region; M54.81 Occipital neuralgia; K21.9 Gastro-esophageal reflux disease without esophagitis; G89.29 Other chronic pain; G25.81 Restless legs syndrome; M79.10 Myalgia, unspecified site; Z88.8 Allergy status to other drugs, medicaments and biological substances; Z79.891 Long term (current) use of opiate analgesic; Z79.899 Other long term (current) drug therapy

== ENCOUNTER → 2019-02-16 | Outpatient (CLI) | payer BC, OTHER ==
[~2019-02-16] VITALS: Ht 175.3 cm; Wt 88.9 kg
[2019-02-16 08:10] VITALS: BP 122/75
--- NOTE | 2019-02-16 08:16 | NUR ---
Pain Clinic Assessment: 1. History of Osteoarthritis: Left Upper Extremity NECK History of Rheumatoid Arthritis: Not Applicable 2. Height: 5 ft. 9 in. 175.3 cm. Weight: 196.0 lb. oz. 88.905 kg. Patient's BMI: 28.9 3. Vital Signs: BP: 122/75 Pulse: 97 Resp: 14 Temp: 02 Sat: 96 ECG Mon: 4. Pain Intensity: 8 NECK 5. Fall Risk: Dizziness: N Needs help standing or walking: N Fallen in the last 3 months: N Fall risk comments: 6. Patient on Blood Thinner: None 7. History of Hypertension: Y 8. Opioid Therapy greater than 6 weeks: Y Opiate Contract Signed: 02/21/16 9. Risk Assessment Tool Provided: 1-low risk 10. Functional Assessment Tool: 11. Recreational Drug Use: Never Drug Type: Tobacco Use: Never Smoker Tobacco Type: Amount or Packs/day: How Many Years: Alcohol Use: No Frequency: Quant:
--- NOTE | 2019-02-23 17:05 | HPC ---
[facility] [address] [place] [address] PAIN MANAGEMENT CONSULTATION Name: SURY HALEY Room #: REG LISSY Tita#: [id number] Admission: 02/16/19 ������������������ Attend Phys: Halle Wesley MD Discharge: ������������������ Date of : 59 Report #: [id number] THIS REPORT FOR: //name// CC: Anthony Wesley DATE OF SERVICE: 02/16/2019 CHIEF COMPLAINT: Here for medication renewal. I am still having pain radiating down into my left arm with numbness and tingling. HISTORY: The patient is a 63-year-old gentleman who has been followed in the pain clinic. As you recall, he has had cervical fusion in the past. Continues to have pain, which is oftentimes problematic. He has been working quite a bit on a computer. Noticed that this has exacerbated the pain and discomfort he has been feeling in the cervical area. He has noted as well a slight tremor in his hand, particularly when he is holding his hands above the keyboard and sometimes inadvertently presses a wrong silvestre. He states that he has talked with his primary physician and was told that it is a tremor. He does have a family history of what sounds like benign familial tremors. He does not feel that he is in need of medication for this at this juncture. Notes that the tremor gets more pronounced if he is nervous, gets more pronounced after he has been doing activities at work with his upper extremity. He feels that his medications are helpful. He has returned today for renewal of his medication. Feels that if his pain continues to be problematic, he may consider cervical epidural steroid injection in the future. ALLERGIES: MORPHINE. CURRENT MEDICATIONS: Hydrocodone 10/325 one p.o. q.i.d., fentanyl patch 12 mcg q. 72 hours, diclofenac gel apply to the skin q.i.d., Naprosyn 220 mg, Cymbalta 60 mg, hydroxyzine 25 mg t.i.d., Lamictal 25 mg total of 50 daily, Vyvanse 60 mg, Nexium 40 mg, hydrochlorothiazide 12.5 mg, Proventil inhaler 2 puffs p.r.n., Advair Diskus daily, lisinopril 40 mg daily. PAIN CLINIC ASSESSMENT/PQRS: 1. The patient has history of osteoarthritic changes in his neck and has undergone a fusion. The patient is not being treated for rheumatoid arthritis. 2. Height 5 feet 9 inches, weight 196 pounds, BMI is 28.9. 3. VITAL SIGNS: Blood pressure 122/75, pulse 97, respiratory rate 14, room air saturation 96%. 4. Pain intensity 8 to 8.5/10. 5. Fall risk. The patient has not fallen in the last 3 months. 6. Blood thinner. The patient is not on a blood thinning medication. 7. Hypertension. The patient is being treated for hypertension. 8. Opioids. The patient receives his medications from one source[place] [address] PAIN MANAGEMENT CONSULTATION Name: EDWARDNAVITIANSRUY Room #: REG CLE[facility]peranza Rivers#: [id number] Admission: 02/16/19 ������������������ Attend Phys: Halle Wesley MD Discharge: ������������������ Date of : 59 Report #: [id number] clinic. 9. Risk assessment tool, low for opioid use. 10. Functional assessment tool . 11. Recreational drug use. The patient denies. 12. Tobacco: The patient has never smoked. 13. Alcohol: The patient denies frequent use of alcoholic beverages. PHYSICAL EXAMINATION: GENERAL: The patient is a well-developed, well-nourished white male. Appears his stated age. He is alert and oriented x 3. His affect is appropriate. Speech is fluent. HEENT: Normocephalic, atraumatic. Extraocular eye muscles intact. NECK: With some increased pain and discomfort. Complains of pain that is radiating down to the left side of his arm down into the forearm and down into his fingers. Both sides are involved. HEART: Regular rate. S1 and S2. RESPIRATORY: Without rhonchi or rales. ABDOMEN: Nontender. MUSCULOSKELETAL: Upper extremity muscle strength judged to be 5-/5 for the major muscle groups in the upper extremity. Sensory changes are noted in the left hand. The patient extends his hands out in front of his body and hold them parallel to the floor. There is a slight shift movement in the right hand, which is mild, but I have seen this in patients with benign familial tremors. Lower extremity: The patient's lower extremity strength judged to be 5/5 for the major muscle groups. The patient without significant kyphosis, lordosis, or scoliosis. IMPRESSION: 1. Cervical radiculopathy history C6-C7 with occasional weakness in the right hand. 2. Occipital neuralgia history, bilateral right greater than the left. 3. Myofascial pain. 4. History of chronic pain, treated with complex medical management using opioid medications. 5. History of depression. 6. History of gastroesophageal reflux. 7. Restless leg syndrome. The patient continues to find Flexeril helpful. RECOMMENDATIONS: We discussed treatment options with the patient. At this juncture, we will renew his medications. The patient feels that the medications are helpful. He is able to stay gainfully employed. He has noted some increased pain in his neck. Notes the pain is radiating down his arm into his hand. He attributes this to an increased use of his foot on the computer. Notes that there is some tremor involving his hand. He has noted on the right hand side. 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 I think [facility] [address] [place] [address] PAIN MANAGEMENT CONSULTATION Name: SURY HALEY [facility] #: REG [facility] [id number] Admission: 02/16/19 ������������������ Attend Phys: Halle Wesley MD Discharge: ������������������ Date of : 59 Report #: [id number] this is or what is going on. We have discussed the possibility of trying medications like propranolol. This medication can cross the blood brain barrier. It has been helpful in some patients with benign tremors. At this point, he feels that his medications are okay. The tremor is not causing enough problem that he would like to have it treated at this juncture. 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 They can become less effective because of tolerance. He states he is taking his medication as prescribed. Keeps them in a guarded area and would like to continue their use. He may consider a cervical epidural steroid injection in the near future. We would like to thank you for letting us participate in his care. We hope he continues to improve. ��������������������������������������������� <ELECTRONICALLY SIGNED> ���������������������������������������� By: Halle Wesley MD ��������������������������������������������� 02/23/19 [id number] 0900 1524 Halle Wesley MD /nt
== END ==
LOC: PAIN 06:42
DX: M54.12 Radiculopathy, cervical region (principal); F32.9 Major depressive disorder, single episode, unspecified; K21.9 Gastro-esophageal reflux disease without esophagitis; M79.18 Myalgia, other site; G89.29 Other chronic pain; G25.81 Restless legs syndrome; Z79.899 Other long term (current) drug therapy; Z88.6 Allergy status to analgesic agent

== ENCOUNTER → 2019-05-18 | Outpatient (CLI) | payer BC, OTHER ==
[~2019-05-18] VITALS: Ht 175.3 cm; Wt 80.8 kg
[2019-05-18 08:05] VITALS: BP 125/73
--- NOTE | 2019-05-18 08:10 | NUR ---
Pain Clinic Assessment: 1. History of Osteoarthritis: Left Upper Extremity NECK History of Rheumatoid Arthritis: Not Applicable 2. Height: 5 ft. 9 in. 175.3 cm. Weight: 178.2 lb. oz. 80.831 kg. Patient's BMI: 26.3 3. Vital Signs: BP: 125/73 Pulse: 107 Resp: 18 Temp: 02 Sat: 98 ECG Mon: 4. Pain Intensity: 8 5. Fall Risk: Dizziness: Y Needs help standing or walking: N Fallen in the last 3 months: N Fall risk comments: 6. Patient on Blood Thinner: None 7. History of Hypertension: Y 8. Opioid Therapy greater than 6 weeks: Y Opiate Contract Signed: 02/21/16 9. Risk Assessment Tool Provided: 1-low risk 10. Functional Assessment Tool: 11. Recreational Drug Use: Never Drug Type: Tobacco Use: Never Smoker Tobacco Type: Amount or Packs/day: How Many Years: Alcohol Use: No Frequency: Quant:
--- NOTE | 2019-05-27 08:25 | HPC ---
[facility] [place] [address] PAIN MANAGEMENT CONSULTATION Name: SURY HALEY [facility] [id number] Admission: 05/18/19 Attend Phys: Halle Wesley MD Discharge: Date of : 59 Report #: [id number] THIS REPORT FOR: //name// CC: Anthony Wesley DATE OF SERVICE: 05/18/2019 PRIMARY CARE PHYSICIAN: Anthony Cardenas MD CHIEF COMPLAINT: "I woke up about 3 o'clock this morning and had a lot of pain down in my arm." HISTORY: The patient is a 64-year-old gentleman who has been followed in the pain clinic. As you recall, he suffers from cervical radiculopathy. He has undergone surgical fusion in the past. Pain continues to be problematic. He finds that the use of opioid medications has been helpful. He has undergone epidural steroid injections and they have been beneficial as well. At this juncture, he feels that his medications are helping. He would like to continue with a conservative approach. He has returned today for renewal of his medications. ALLERGIES: MORPHINE. CURRENT MEDICATIONS: Hydrocodone 10/325 one p.o. q.i.d., fentanyl patch 12 mcg q. 72 hours, diclofenac gel applied to the skin q.i.d., Naprosyn 220 mg, Cymbalta 60 mg, hydroxyzine 25 mg t.i.d., Lamictal 25 mg, a total of 50 mg daily, Vyvanse 60 mg, Nexium 40 mg, hydrochlorothiazide 12.5 mg, Proventil inhaler 2 puffs p.r.n., Advair Diskus daily, lisinopril 40 mg daily. PAIN CLINIC ASSESSMENT/PQRS: 1. The patient has some osteoarthritic changes involving his neck and has undergone fusion. The patient is not being treated for rheumatoid arthritis. 2. Height 5 feet 9 inches, weight 178 pounds, BMI is 26. 3. Vital signs: Blood pressure 125/73, pulse 107, respiratory rate 18, room air saturation 98%. 4. Pain intensity 02/26. 5. Fall risk. The patient has not fallen in the last 3 months. 6. Blood thinner. The patient is not on a blood thinning medication. 7. Hypertension. The patient is being treated for hypertension. 8. Opioids greater than 6 weeks. The patient received medication from one source, the pain clinic. 9. Risk assessment tool, low for opioid use. 10. Functional assessment tool . 11. Recreational drugs: The patient denies. 12. Tobacco: The patient has never smoked. [address] [address] PAIN MANAGEMENT CONSULTATION Name: SURY HALEY Room #: REG [facility]#: [id number] Admission: 05/18/19 Attend Phys: Halle Wesley MD Discharge: Date of : 59 Report #: [id number] 13. Alcohol. The patient denies use of alcoholic beverages. PHYSICAL EXAMINATION: GENERAL: The patient is a well-developed, well-nourished white male. Appears his stated age. He is alert and oriented x 3. His affect is appropriate. Speech is fluent. HEENT: Normocephalic, atraumatic. Extraocular eye muscles intact. Sclerae nonicteric. Mucous membranes are moist. The patient has pain and discomfort in the neck with pain radiating down into his neck. Rates his pain as 8 with note of muscle spasms, tenderness and numbness. Has pain down in both sides. HEART: Regular rate. S1 and S2. Respiratory rate generally clear without rales or rhonchi. ABDOMEN: Nontender. MUSCULOSKELETAL: Upper extremity muscle strength judged to be 5-/5 for the major muscle groups in the upper extremity. Notes some numbness and tingling down into his hands. 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 Lower extremity muscle strength judged to be 5/5 for the major muscle groups of the lower extremity. The patient without significant scoliosis, kyphosis or lordosis. IMPRESSION: 1. Cervical radiculopathy, C6-C7 with weakness in the right hand and some down into the left side. 2. History of occipital neuralgia and bilateral pain, left and right. 3. Myofascial pain. 4. History of chronic pain treated with complex medical regimen using opioids. 5. History of depression. 6. History of gastroesophageal reflux. 7. Restless leg syndrome. RECOMMENDATIONS: We discussed treatment options with the patient. At this juncture, we will continue with his current medical regimen of opioids. He feels that these medications are helpful. They enable him to remain gainfully employed. Noted that his pain has worsened today. The weather pattern has changed significantly. We are about 40 degrees below what the weather temperature should be. There is threatened of rain snow sleet today. This is the coldest April on record. A script for his medications has been rewritten. We will continue with fentanyl patches 12 mcg 1 p.o. q. 72 hours, hydrocodone 7.5 mg one p.o. q. 4 hours p.r.n., Voltaren gel to the upper extremity. He is aware that opioid medications can become less effective over time. He is aware in the media of 70,000 people as a result of overdosing of medications. He states he has taken his medication as prescribed. Keeps his medications in a guarded area. [facility] [address] [place] [address] PAIN MANAGEMENT CONSULTATION Name: SURY HALEY Room #: REG [facility]#: [id number] Admission: 05/18/19 Attend Phys: Halle Wesley MD Discharge: Date of : 59 Report #: [id number] We would like to thank you for letting us participate in his care. We hope he continues to improve. <ELECTRONICALLY SIGNED> By: Halle Wesley MD 05/27/19 0825 [id number] Halle Wesley MD /PMT
== END ==
LOC: PAIN 06:49
DX: M54.12 Radiculopathy, cervical region (principal); I10 Essential (primary) hypertension; K21.9 Gastro-esophageal reflux disease without esophagitis; F32.9 Major depressive disorder, single episode, unspecified; Z88.5 Allergy status to narcotic agent; Z79.899 Other long term (current) drug therapy; Z79.891 Long term (current) use of opiate analgesic

== ENCOUNTER → 2019-08-03 | Outpatient (CLI) | payer BC, OTHER ==
[~2019-08-03] VITALS: Ht 175.3 cm; Wt 82.3 kg
[2019-08-03 15:06] VITALS: BP 126/79
--- NOTE | 2019-08-03 15:14 | NUR ---
Pain Clinic Assessment: 1. History of Osteoarthritis: Left Upper Extremity NECK History of Rheumatoid Arthritis: DENIES 2. Height: 5 ft. 9 in. 175.3 cm. Weight: 181.4 lb. oz. 82.283 kg. Patient's BMI: 26.8 3. Vital Signs: BP: 126/79 Pulse: 87 Resp: 14 Temp: 02 Sat: 100 ECG Mon: 4. Pain Intensity: 8 5. Fall Risk: Dizziness: N Needs help standing or walking: N Fallen in the last 3 months: N Fall risk comments: 6. Patient on Blood Thinner: None 7. History of Hypertension: Y 8. Opioid Therapy greater than 6 weeks: Y Opiate Contract Signed: 02/21/16 9. Risk Assessment Tool Provided: 1-low risk 10. Functional Assessment Tool: 11. Recreational Drug Use: Never Drug Type: Tobacco Use: Never Smoker Tobacco Type: Amount or Packs/day: How Many Years: Alcohol Use: No Frequency: Quant:
--- NOTE | 2019-08-04 12:38 | HPC ---
[facility] [address] [place] [address] PAIN MANAGEMENT CONSULTATION Name: SURY HALEY [id number] Admission: 08/03/19 Attend Phys: Astrid Chappell Discharge: Date of : 59 Report #: [id number] THIS REPORT FOR: //name// CC: Astrid Wesley MD DATE OF SERVICE: 08/03/2019 CHIEF COMPLAINT: Cervical radiculopathy and occipital neuralgia. HISTORY OF PRESENT ILLNESS: This is a 64-year-old gentleman who returns to the pain clinic today for a refill of his medications. He does have ongoing neck pain from a recent cervical fusion in the past and continues to have pain in his occipital areas as well as his neck and radiates into his arms. His pain score today is an 8/10. He reports that it is aching, tender soreness that is worse with using the computer and turning his head. He does find the medications beneficial as well as heat and ice and a TENS unit. The patient denies any problems with constipation or daytime sleepiness, though he does suffer from some dry mouth symptoms. 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 ALLERGIES: MORPHINE. CURRENT LIST OF MEDICATIONS: Hydrocodone 7.5/325 up to 5 tablets a day, fentanyl 12 mcg patch, diclofenac gel, trazodone, Cymbalta, hydroxyzine, Lamictal, Vyvanse, hydrochlorothiazide, albuterol inhaler, Advair and Zestril. PQRS: 1. He has osteoarthritis in his neck and upper extremities. Denies any rheumatoid arthritis. 2. Height is 5 feet 9 inches, weight is 181, BMI is 26. 3. Blood pressure is 126/79, pulse is 87, respirations 14, oxygen sat is 100. 4. Pain score is 8/10. 5. Denies dizziness, does not need help walking or standing, has not fallen in the last 3 months. 6. The patient is not on any blood thinners, but does take medicine for hypertension. His opioid therapy is greater than 6 weeks; therefore, an opioid signed contract is on the chart. Risk assessment tool is low. Functional assessment is 30/70. 7. Recreational drug use, he denies. He is not a smoker and does not drink alcohol. [facility] [address] [place] [address] PAIN MANAGEMENT CONSULTATION Name: SURY HALEY Room #: REG [facility]#: [id number] Admission: 08/03/19 Attend Phys: Astrid Chappell Discharge: Date of : 59 Report #: [id number] According to the prescription monitoring system, the patient is not due to fill his fentanyl prescription until 08/15/2019. He did refill his hydrocodone in June on the , but that was 4 days early per the prescription monitoring system report. This was addressed with the patient. His morphine mEq according to the CDC guidelines is 75. We will recheck a urine drug screen on this patient at his next visit. It has been greater than a year from his last drug screen. PHYSICAL EXAMINATION: GENERAL: This is a well-developed, well-nourished white gentleman who appears his stated age, placing his current pain score at 8/10 today. His affect is appropriate. HEENT: Normocephalic, atraumatic. Extraocular eye muscles are intact. Mucous membranes are slightly dry. NECK: He has increased pain with movement from side to side. This pain does radiate into his left arm to his fingers and with flexion and extension of his neck. MUSCULOSKELETAL: Upper extremity strength judged to be 5/5 in all major muscle groups. He does have some sensory changes in his left hand. The patient's lower extremity strength judged to be 5/5 in all major muscle groups. He is without significant scoliosis, kyphosis or lordosis. IMPRESSION: 1. Cervical radiculopathy with history of C6-C7 weakness of the right hand. 2. Occipital neuralgia. 3. Myofascial pain. 4. History of chronic pain treated with complex medical management under terms of written opioid agreement. 5. History of depression. We reviewed the fact that opiate medications are being used to provide analgesia adequate to support activities of daily living, not attempting to achieve a specific pain score on the 0-10 Visual Analog Scale. The current opiate medications are providing sufficient analgesia to allow the patient to participate in activities of daily living. The patient is not exhibiting any aberrant behavior suggestive of drug diversion. The patient is not having any adverse reactions to medications. The patient is not suffering from daytime somnolence or mental acuity changes. The patient is managing opiate-induced constipation with appropriate qdlj-xkk-snbaufo agents and dietary considerations. The patient was counseled on concern for caution with operating a motor vehicle while using opiate medications. A physical exam was performed and the patient's functional status was evaluated. All patients with back pain were advised against the bed rest greater than 4 days and were advised to return to normal activities. Pain score assessment was [address] [address] PAIN MANAGEMENT CONSULTATION Name: SURY HALEY Room #: REG [facility] Naila#: [id number] Admission: 08/03/19 Attend Phys: Astrid DEVI Ta Discharge: Date of : 59 Report #: [id number] noted and the treatment plan was reviewed with the patient. All current medications, both prescribed and OTC were reviewed and reconciled on the electronic medical record. Tobacco screening was accomplished and smoking cessation was advised when indicated. BMI was noted and diet/exercise modification was recommended for all patients following outside normal parameters. I reviewed with the patient today their responsibilities to safeguard prescription medications, reviewed their responsibility to utilize medications only as prescribed by the physician. They are to seek and receive pain medications only from 1 physician group ( [facility]). They are to use 1 pharmacy and keep the clinic informed if they change pharmacies. Their responsibilities include making followup visits in a timely fashion and to avoid abrupt discontinuation of medication usage. Their responsibilities further include bringing their medications (bottles from the pharmacy with residual pills) to the visit for possible confirmation of pill counts and the patient understands it is their responsibility to submit to random drug screens to ensure both that the medications prescribed are present, and that no other controlled substances are present. All prescriptions provided today were generated electronically. PLAN: 1. We discussed treatment options with the patient today. The patient reports that his medications are beneficial, though he has been having increased pain since the weather has changed to colder weather. The patient is wondering if he is able to get his medications today since he is going out of town later for a conference. I explained to the patient he is not due for his fentanyl patches until 08/15/2019. He may have those when he returns. The patient when asked to see the fentanyl patch today, the patient reports he fell off at the gym. He will reapply this when he gets home after our appointment. 2. I did call the pharmacy and told them he was able to fill his hydrocodone tomorrow prior to going out of town. At that time, I learned he had filled his last hydrocodone early. I explained to them to add those dates to the end of this prescription making the patient not able to fill his medication for 34 days since the patient should have enough medications to last. 3. Scripts given today for his fentanyl 12 mcg patch as well as his hydrocodone. These were written by Dr. Alan Wesley who did collaborate care today. 4. We will repeat a urine drug screen on this patient at his next visit. <ELECTRONICALLY SIGNED> By: Astrid Chappell 08/04/19 1238 [id number] Astrid Chappell /nt
== END ==
LOC: PAIN 12:52
DX: M54.81 Occipital neuralgia (principal); M54.12 Radiculopathy, cervical region; M79.18 Myalgia, other site; Z79.899 Other long term (current) drug therapy

== ENCOUNTER → 2019-11-16 | Outpatient (CLI) | payer BC, OTHER ==
[~2019-11-16] VITALS: Ht 175.3 cm; Wt 87.1 kg
[2019-11-16 13:56] VITALS: BP 137/68
--- NOTE | 2019-11-16 14:04 | NUR ---
Pain Clinic Assessment: 1. History of Osteoarthritis: Left Upper Extremity NECK History of Rheumatoid Arthritis: DENIES 2. Height: 5 ft. 9 in. 175.3 cm. Weight: 192.0 lb. oz. 87.091 kg. Patient's BMI: 28.3 3. Vital Signs: BP: 137/68 Pulse: 105 Resp: 18 Temp: 02 Sat: 97 ECG Mon: 4. Pain Intensity: 7 5. Fall Risk: Dizziness: N Needs help standing or walking: N Fallen in the last 3 months: N Fall risk comments: 6. Patient on Blood Thinner: None 7. History of Hypertension: Y 8. Opioid Therapy greater than 6 weeks: Y Opiate Contract Signed: 02/21/16 9. Risk Assessment Tool Provided: 1-low risk 10. Functional Assessment Tool: 11. Recreational Drug Use: Never Drug Type: Tobacco Use: Never Smoker Tobacco Type: Amount or Packs/day: How Many Years: Alcohol Use: No Frequency: Quant:
--- NOTE | 2019-11-17 08:15 | HPC ---
[facility] [address] [address] PAIN MANAGEMENT CONSULTATION Name: SURY HALEY Room #: REG [facility]#: [id number] Admission: 11/16/19 Attend Phys: Halle Wesley MD Discharge: Date of : 59 Report #: [id number] THIS REPORT FOR: cc: Anthony Cardenas MD, Jeffrey A. MD Hocker, Amanda [employer] ~ CC: Anthony Wesley DATE OF SERVICE: 11/16/2019 CHIEF COMPLAINT: Cervical radiculopathy and occipital neuralgia. HISTORY OF PRESENT ILLNESS: This is a 64-year-old gentleman who returns to the pain clinic today for refill of his medications that he uses to help treat his ongoing cervical radiculopathy as well as his occipital neuralgias. He reports today his pain score is slightly elevated at 7/10. He states he has had some flare-ups in the past month, most significantly extreme one on Thursday. He states that it is a sharp, aching tingly pain. On Thursday, it was so bad, he reports he did try medical marijuana, though it made him very nauseated and he vomited. He states that he is not interested in trying that again. He feels his medications work significantly better. Per his report, he has been out of his medications for a couple of days. His last visit with us was in July. The patient reports that turning his head and using his computer does increase his pain significantly. Normally, his medications are beneficial and his pain is decreased as well as heat and ice and occasional use of his TENS unit. Today, he is requesting refills of his hydrocodone and fentanyl. He also feels that his Voltaren gel has been beneficial and is unsure if he needs refills of that medication or not. ALLERGIES: MORPHINE. CURRENT LIST OF MEDICATIONS: Trazodone, Cymbalta, hydroxyzine, Lamictal, Vyvanse, hydrochlorothiazide, Advair, Zestril, diclofenac, fentanyl 12 mcg patch every 72 hours and hydrocodone 7.5/325 p.r.n. PQRS: 1. He has osteoarthritis in his upper extremities as well as his neck. He denies any rheumatoid arthritis. 2. Height is 5 feet 9 inches, weight is 192, BMI is 28. 3. Vital signs 137/68, pulse is 105, respirations 18, oxygen sat is 97%. 4. Pain score 7/10. 5. Denies dizziness, does not need help walking or standing, has not fallen in the last 3 months. 6. The patient is not on any blood thinners, but does take [place] [address] PAIN MANAGEMENT CONSULTATION Name: SURY HALEY Room #: REG [facility]#: [id number] Admission: 11/16/19 Attend Phys: Halle Wesley MD Discharge: Date of : 59 Report #: [id number] 7. Opioid therapy is greater than 6 weeks; therefore, an opioid signed contract is on the chart. Risk assessment tool is low. Functional assessment is . 8. Recreational drug use, he denies. He is not a smoker and does not drink alcohol. According to the prescription monitoring system, the patient is filling appropriately for his medications. He is past due to fill these medications today. According to the CDC guidelines, his morphine mEq is 66 mme's per day. We will check a random drug screen on the next visit due to the patient being out of his medication for 5 days today. PHYSICAL EXAMINATION: GENERAL: This is a well-developed, well-nourished white gentleman who appears his stated age, placing his current pain score 7/10. He has an appropriate affect. HEENT: Normocephalic, atraumatic. Extraocular eye muscles are intact. Mucous membranes are moist. NECK: He has pain that radiates from his cervical spine into his left arm with numbness and tingling in his fingers. Pain is worse with flexion and extension in his neck and rhca-tw-gunv tilt, also has tenderness in his occipital regions on the right side. MUSCULOSKELETAL: Upper extremity strength judged to be 5/5 in all major muscle groups. Is without significant scoliosis, kyphosis or lordosis. IMPRESSION: 1. Chronic cervical radiculopathy with history of C6-C7 weakness on the right hand. 2. Occipital neuralgia. 3. Myofascial pain. 4. History of chronic pain, being treated with complex medical management under terms of written opioid agreement. We reviewed the fact that opiate medications are being used to provide analgesia adequate to support activities of daily living, not attempting to achieve a specific pain score on the 0-10 Visual Analog Scale. The current opiate medications are providing sufficient analgesia to allow the patient to participate in activities of daily living. The patient is not exhibiting any aberrant behavior suggestive of drug diversion. The patient is not having any adverse reactions to medications. The patient is not suffering from daytime somnolence or mental acuity changes. The patient is managing opiate-induced constipation with appropriate tncu-xht-lyxsgzq agents and dietary considerations. The patient was counseled on concern for caution with operating a motor vehicle while using opiate medications. A physical exam was performed and the patient's functional status was evaluated. All patients with back pain were advised against the bed rest greater than 4 [facility] [address] [place] [address] PAIN MANAGEMENT CONSULTATION Name: SURY HALEY Room #: REG [facility] PpoDaina.#: [id number] Admission: 11/16/19 Attend Phys: Halle Wesley MD Discharge: Date of : 59 Report #: [id number] and were advised to return to normal activities. Pain score assessment was noted and the treatment plan was reviewed with the patient. All current medications, both prescribed and OTC were reviewed and reconciled on the electronic medical record. Tobacco screening was accomplished and smoking cessation was advised when indicated. BMI was noted and diet/exercise modification was recommended for all patients following outside normal parameters. I reviewed with the patient today their responsibilities to safeguard prescription medications, reviewed their responsibility to utilize medications only as prescribed by the physician. They are to seek and receive pain medications only from 1 physician group ( [facility]). They are to use 1 pharmacy and keep the clinic informed if they change pharmacies. Their responsibilities include making followup visits in a timely fashion and to avoid abrupt discontinuation of medication usage. Their responsibilities further include bringing their medications (bottles from the pharmacy with residual pills) to the visit for possible confirmation of pill counts and the patient understands it is their responsibility to submit to random drug screens to ensure both that the medications prescribed are present, and that no other controlled substances are present. All prescriptions provided today were generated electronically. PLAN: 1. We discussed treatment options with the patient today. The patient finds his medications very beneficial in reducing his overall pain and enabling him to be as active as possible and work. We will refill his fentanyl patch 12 mcg, #10 to release today 4 weeks and 8 weeks as well as hydrocodone 7.5/325, #150 for 3-month supply as well. 2. If the patient does need Voltaren gel from the pharmacy, I have authorized refills if needed. The patient is unsure if he has used all of his refills at this time. 3. We did discuss medical marijuana. The patient did try this over the weekend and it made him nauseated. I explained to the patient that is a very common side effect of that drug that patient experience. The patient tells me at this time that he is not planning on using that again to try and decrease his pain. 4. The patient is seen today in collaboration with Dr. Alan Wesley. <ELECTRONICALLY SIGNED> By: Astrid Chappell 11/17/19 0815 [id number] Astrid Chappell /cynthia
== END ==
LOC: PAIN 09:08
DX: M54.12 Radiculopathy, cervical region (principal); F11.20 Opioid dependence, uncomplicated; M79.18 Myalgia, other site; Z88.5 Allergy status to narcotic agent; Z79.899 Other long term (current) drug therapy

== ENCOUNTER → 2020-02-08 | Outpatient (CLI) | payer BC, OTHER ==
[~2020-02-08] VITALS: Ht 175.3 cm; Wt 80.3 kg
[~2020-02-08] MED LIST changes: +WELLBUTRIN 75 M75 M1 PO
[2020-02-08 08:09] VITALS: BP 117/80
--- NOTE | 2020-02-08 08:32 | NUR ---
Pain Clinic Assessment: 1. History of Osteoarthritis: Left Upper Extremity NECK History of Rheumatoid Arthritis: DENIES 2. Height: 5 ft. 9 in. 175.3 cm. Weight: 177.0 lb. oz. 80.287 kg. Patient's BMI: 26.1 3. Vital Signs: BP: 117/80 Pulse: 107 Resp: 14 Temp: 02 Sat: 100 ECG Mon: 4. Pain Intensity: 9 5. Fall Risk: Dizziness: N Needs help standing or walking: N Fallen in the last 3 months: N Fall risk comments: 6. Patient on Blood Thinner: None 7. History of Hypertension: Y 8. Opioid Therapy greater than 6 weeks: Y Opiate Contract Signed: 02/21/16 9. Risk Assessment Tool Provided: 1-low risk 10. Functional Assessment Tool: 11. Recreational Drug Use: Never Drug Type: Tobacco Use: Never Smoker Tobacco Type: Amount or Packs/day: How Many Years: Alcohol Use: No Frequency: Quant:
--- NOTE | 2020-02-21 14:10 | HPC ---
[facility] [place] [address] PAIN MANAGEMENT CONSULTATION Name: SURY HALEY Room #: REG LISSY YooCollins#: [id number] Admission: 02/08/20 Attend Phys: Halle Wesley MD Discharge: Date of : 59 Report #: [id number] THIS REPORT FOR: cc: Anthony Cardenas MD, Jeffrey A. MD Brown, N. Wayne MD ~ CC: Anthony Wesley DATE OF SERVICE: 02/08/2020 PRIMARY CARE PHYSICIAN: Anthony Cardenas MD CHIEF COMPLAINT: Here for medication renew. HISTORY: The patient is a 64-year-old gentleman who has been followed in the pain clinic because of chronic pain. He has pain in the occipital areas. He also has bilateral hand numbness. He has had some cervical problems and has undergone cervical epidural steroid injections in the past. He has injured his left shoulder. He is having some pains in the trapezius area. He is scheduled to follow up with his orthopedic surgeon in the near future. He has a left biceps tear. He rates his pain overall as a 9/10. He is considering surgery in the near future. He would like for the pain clinic to help with control of his pain given that he is on chronic opioid medications. He has increased pain when he is turning his head. Notes more pain with use of his computer. He notes that his medications can be helpful. He has returned today for renewal of his medications and would like to solicit our help after his surgery to help control the pain. ALLERGIES: MORPHINE. CURRENT MEDICATIONS: Trazodone, Cymbalta, hydroxyzine, Lamictal, Vyvanse, hydrochlorothiazide, Advair, Zestril, diclofenac, fentanyl 12 mcg patches q. 72 hours, hydrocodone 7.5/325 p.r.n. PAIN CLINIC ASSESSMENT AND PQRS: 1. The patient has a history of osteoarthritis changes in his neck and has undergone fusion. He has some problems with his left bicep which has suffered a tear. He is not being treated for rheumatoid arthritis. 2. Height 5 feet 9 inches, weight 177 pounds, BMI is 26.1. 3. Vital signs: Blood pressure 117/80, pulse 107, respiratory rate 18, room air saturation is 100%. 4. Pain intensity 03/29. 5. Fall risk. The patient has not fallen since we saw him last. He did try to catch a basketball pole, which was falling. After catching that he noticed a tear and discomfort in [place] [address] PAIN MANAGEMENT CONSULTATION Name: SURY HALEY Room #: REG [facility]#: [id number] Admission: 02/08/20 Attend Phys: Halle Wesley MD Discharge: Date of : 59 Report #: [id number] 6. Blood thinner. The patient is not on a blood thinning medication. 7. Hypertension. The patient is being treated for hypertension. 8. Opioids greater than 6 weeks. The patient receives medication from the pain clinic. 9. Risk assessment tool, low. 10. Functional assessment tool is . 11. Recreational drug use. The patient denies. 12. Alcohol: The patient denies. PHYSICAL EXAMINATION: GENERAL: The patient is a well-developed, well-nourished white male. Appears his stated age. He is alert and oriented x 3. His affect is appropriate. Speech is fluent. HEENT: Normocephalic, atraumatic. Extraocular eye muscles intact. The patient does have some pain and discomfort in the occipital area. The patient is wearing a mask. The patient has some pain radiating down into his neck. Notes some muscle spasms and tenderness. Has increased pain and discomfort in the left arm. Unable to raise his arm. Notes increased pain and discomfort with movement of his bicep. Notes some shortening of muscle. 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 Muscle strength on the right is judged to be 5/5 for the major muscle groups in the upper extremity. Muscle strength on the left is 4+/5 for the major muscle groups with some soreness on the left side in the biceps area. The patient without significant scoliosis, kyphosis or lordosis. Lower extremity muscle strength judged to be 5/5 for the major muscle groups in the lower extremity. IMPRESSION: 1. Recent left biceps tendon tear. 2. Cervical radiculopathy C6-C7 with weakness in the right hand and down into the left side. 3. History of occipital neuralgia and bilateral pain, left and right side. 4. Myofascial pain. 5. History of chronic pain treated with complex medical regimen using opioids. 6. Depression. 7. History of gastroesophageal reflux. 8. Restless leg syndrome. RECOMMENDATIONS: We discussed treatment options with the patient. At this juncture, we will continue with his medications. A script for his medications has been rewritten. The patient is concerned. He is to see his orthopedic doctor in the next few days. He is concerned that if he has surgery, he may notice an increased amount of pain and discomfort. He would like to have the assistance of the pain clinic if he should undergo surgery. A script for his medication has been provided. He will continue with hydrocodone 7.5 mg one p.o. q. 4-6 hours. He will also continue with fentanyl patch 12.5 mcg q. 72 hours. [facility] [address] [place] [address] PAIN MANAGEMENT CONSULTATION Name: SURY HALEY [facility] #: [facility] [id number] Admission: 02/08/20 Attend Phys: Halle Wesley MD Discharge: Date of : 59 Report #: [id number] We would like to thank you for letting us participate in his care. We hope he continues to improve. <ELECTRONICALLY SIGNED> By: Halle Wesley MD 02/21/20 1410 0043 [id number] Halle Wesley MD /MIRZA
== END ==
LOC: PAIN 06:56
PROVIDERS: ATTEND Anesthesiology Pain Medicine
DX: Z76.0 Encounter for issue of repeat prescription (principal); S46.212D Strain of muscle, fascia and tendon of other parts of biceps, left arm, subsequent encounter; M54.12 Radiculopathy, cervical region; G89.29 Other chronic pain; K21.9 Gastro-esophageal reflux disease without esophagitis; F32.9 Major depressive disorder, single episode, unspecified; Z79.891 Long term (current) use of opiate analgesic; X58.XXXD Exposure to other specified factors, subsequent encounter

== ENCOUNTER → 2020-05-09 | Outpatient (CLI) | payer BC, OTHER ==
[~2020-05-09] VITALS: Ht 175.3 cm; Wt 81.6 kg
[~2020-05-09] MED LIST changes: +NARCAN4 MG NARES
[2020-05-09 08:36] VITALS: BP 161/78
--- NOTE | 2020-05-09 08:46 | NUR ---
Pain Clinic Assessment: 1. History of Osteoarthritis: Left Upper Extremity NECK History of Rheumatoid Arthritis: DENIES 2. Height: 5 ft. 9 in. 175.3 cm. Weight: 180.0 lb. oz. 81.648 kg. Patient's BMI: 26.6 3. Vital Signs: BP: 161/78 Pulse: 86 Resp: 14 Temp: 02 Sat: 98 ECG Mon: 4. Pain Intensity: 6 5. Fall Risk: Dizziness: N Needs help standing or walking: N Fallen in the last 3 months: N Fall risk comments: 6. Patient on Blood Thinner: None 7. History of Hypertension: Y 8. Opioid Therapy greater than 6 weeks: Y Opiate Contract Signed: 02/21/16 9. Risk Assessment Tool Provided: 1-low risk 10. Functional Assessment Tool: 11. Recreational Drug Use: Never Drug Type: Tobacco Use: Never Smoker Tobacco Type: Amount or Packs/day: How Many Years: Alcohol Use: No Frequency: Quant:
--- NOTE | 2020-05-11 08:11 | HPC ---
[facility] [place] [address] PAIN MANAGEMENT CONSULTATION Name: SURY HALEY Room #: REG LISSY YooCollins#: [id number] Admission: 05/09/20 Attend Phys: Halle Wesley MD Discharge: Date of : 59 Report #: [id number] CC: Anthony Wesley DATE OF SERVICE: 05/09/2020 CHIEF COMPLAINT: Pain is improving since the surgery. HISTORY: The patient is a 65-year-old gentleman who has been followed in the Pain Clinic because of chronic pain. He often has cervical radicular and occipital pain. He recently tore his left biceps. He was injured while trying to hold up of falling post. He has had surgery and feels that his pain is improving. He feels he is about 75% improved at this point. He has been progressing and his physician indicated that he is about 90% improved. He will follow up with the orthopedic surgeon in the near future. He has been undergoing physical therapy twice a week. It is slow to rehab his arm, but he feels that things are going reasonably well. He has returned today for renewal of his medications. ALLERGIES: MORPHINE. CURRENT MEDICATIONS: Trazodone, Cymbalta, hydroxyzine, Lamictal, Vyvanse, hydrochlorothiazide, Advair, Zestril, diclofenac, fentanyl patch 12 mcg q. 72 hours, hydrocodone 7.5 mg. PAIN CLINIC ASSESSMENT/PQRS: 1. The patient does have a history of osteoarthritic changes in his neck as well as he has undergone a fusion. He has had some problems with his left biceps, which he suffered and it was torn while catching a pole, which was falling. He is not being treated for rheumatoid arthritis. 2. Height 5 feet 9 inches, weight 180 pounds, BMI is 26. 3. Vital signs: Blood pressure 161/78, pulse 86, respiratory rate 14, room air saturation 98%. 4. Pain intensity, 10. 5. Fall history: The patient has fallen. States that he fell and was either going to fall on his granddaughter or fell on his left shoulder. He fell on his shoulder. Did not notice any significant worsening of his shoulder. 6. Blood thinner. The patient is not on a blood thinning medication. 7. Hypertension. The patient is being treated for hypertension. 8. Opioids. The patient receives medication from one source the Pain Clinic. 9. Risk assessment tool, low for opioid use. 10. Functional assessment tool, . 11. Recreational drug use. The patient denies. 12. Tobacco: The patient has never smoked. 13. Alcohol. The patient denies use of alcoholic beverages. PHYSICAL EXAMINATION: GENERAL: The patient is a well-developed, well-nourished white male. Appears his stated age. He is alert and oriented x 3. His affect is appropriate. Speech is fluent. HEENT: Normocephalic, atraumatic. Extraocular eye muscles intact. The patient is wearing a facial covering. Does have some pain and discomfort in the occipital area. Has some tenderness in the left shoulder. He has some decreased range of motion in the shoulder. He is able to move it gently in its range of motion. LUNGS: Clear. HEART: Regular rate. ABDOMEN: Nontender. EXTREMITIES: Upper extremity muscle strength on the right joint, felt to be 5-/5 for the major muscle groups. Muscle strength on the left, 3+/5. Lower extremity muscle strength is judged to be 5/5 for the major muscle groups in the lower extremity. IMPRESSION: 1. Recent left biceps tendon tear and repair. 2. Cervical radiculopathy, C6-C7 with weakness in his hand and down into the left side. 3. History of occipital neuralgia and bilateral pain, left and right side. 4. Myofascial pain. 5. History of chronic pain treated with complex medical regimen using opioids. 6. Depression. 7. History of gastroesophageal reflux. 8. Restless leg syndrome. RECOMMENDATIONS: We discussed treatment options with the patient. At this juncture, he feels that things are going reasonably well. He is working with a therapist twice weekly. He has noted some improvement in his pain. He has gone from 75% improvement to about 90% improvement. He notes that the pain is somewhat problematic, but he is working through it. Overall, he feels that it was the right thing to do have surgery. A script for his medications has been written. He will continue with the medications of diclofenac applications to the affected area, fentanyl patches 12 mcg and hydrocodone 7.5 mg 1 p.o. 4 times daily. We would like to thank you for letting us participate in his care. We hope he continues to improve. <ELECTRONICALLY SIGNED> By: Halle Wesley MD 05/11/20 0811 [id number] Halle Wesley MD /nt
== END ==
LOC: PAIN 06:47
PROVIDERS: ATTEND Anesthesiology Pain Medicine
DX: G89.18 Other acute postprocedural pain (principal); G25.81 Restless legs syndrome; Z87.19 Personal history of other diseases of the digestive system; F32.9 Major depressive disorder, single episode, unspecified; Z87.39 Personal history of other diseases of the musculoskeletal system and connective tissue; M79.10 Myalgia, unspecified site; Z86.61 Personal history of infections of the central nervous system; M54.12 Radiculopathy, cervical region; Z88.5 Allergy status to narcotic agent; Z79.899 Other long term (current) drug therapy

== ENCOUNTER → 2020-08-01 | Outpatient (CLI) | payer BC, OTHER ==
[~2020-08-01] VITALS: Ht 175.3 cm; Wt 85.0 kg
[2020-08-01 08:40] VITALS: BP 137/80
--- NOTE | 2020-08-01 08:49 | NUR ---
Pain Clinic Assessment: 1. History of Osteoarthritis: Left Upper Extremity NECK History of Rheumatoid Arthritis: DENIES 2. Height: 5 ft. 9 in. 175.3 cm. Weight: 187.4 lb. oz. 85.004 kg. Patient's BMI: 27.7 3. Vital Signs: BP: 137/80 Pulse: 116 Resp: 18 Temp: 02 Sat: 100 ECG Mon: 4. Pain Intensity: 5 5. Fall Risk: Dizziness: N Needs help standing or walking: N Fallen in the last 3 months: N Fall risk comments: 6. Patient on Blood Thinner: None 7. History of Hypertension: Y 8. Opioid Therapy greater than 6 weeks: Y Opiate Contract Signed: 02/21/16 9. Risk Assessment Tool Provided: 1-low risk 10. Functional Assessment Tool: 11. Recreational Drug Use: Never Drug Type: Tobacco Use: Never Smoker Tobacco Type: Amount or Packs/day: How Many Years: Alcohol Use: No Frequency: Quant:
--- NOTE | 2020-08-01 12:27 | HPC ---
[facility] [address] [place] [address] PAIN MANAGEMENT CONSULTATION Name: SURY HALEY Room #: REG [facility] [id number] Admission: 08/01/20 Attend Phys: Astrid Chappell Discharge: Date of : 59 Report #: [id number] THIS REPORT FOR: cc: Anthony Cardenas MD, Jeffrey A. MD Hocker,Astrid Harper DATE OF SERVICE: 08/01/2020 CHIEF COMPLAINT: Cervical radiculopathy and left shoulder pain. HISTORY OF PRESENT ILLNESS: As you know, this is a 65-year-old gentleman who returns to the pain clinic today to discuss his medication management. He has recovered from a rotator cuff and biceps tendon repair in January and continues physical therapy. He does report good range of motion in that arm presently and feels like he is mostly recovered, though he is continuing under the care of Dr. Disla until next week where he is hopefully dismissed. He does report ongoing neck pain with hand pain associated with his cervical radiculopathy with numbness, aching and tingly sensation. He does also report a recent sledding accident where he injured his tailbone finding it difficult to sit at times due to discomfort in that region. Today, he is reporting a pain score of 5/10, worse with any activity, but the medication and repositioning is beneficial. The patient is wondering about decreasing his medications later this year with his goal to hopefully wean off his medications in the future. He denies any constipation or daytime somnolence as a result of his medicines. ALLERGIES: MORPHINE. CURRENT LIST OF MEDICATIONS: Hydrocodone 7.5/325 five times a day, fentanyl 12 mcg patch every 72 hours, diclofenac gel, bupropion, trazodone, duloxetine, hydralazine, Lamictal, Vyvanse, hydrochlorothiazide, albuterol, Advair and lisinopril. PQRS: 1. He has osteoarthritic changes in his neck and upper extremities. Denies any rheumatoid arthritis. 2. Height is 5 feet 9 inches, weight is 187, BMI is 27. Vital signs 137/80, pulse is 116, respirations 18, oxygen sat is 100, pain score is 5/10. Denies any dizziness or does not need help walking or standing, has not fallen in the last 3 months. The patient is not on any blood thinners, but does take medicine for hypertension. His opioid therapy is greater than 6 weeks; therefore, an opioid signed contract is on the chart. Risk assessment is low. Functional assessment is . 3. Recreational drug use, he denies. He is not a smoker and does not drink alcohol. [address] [address] PAIN MANAGEMENT CONSULTATION Name: SURY HALEY Room #: REG CL Tita#: [id number] Admission: 08/01/20 Attend Phys: Astrid Chappell Discharge: Date of : 59 Report #: [id number] According to the prescription monitoring system, he is due to fill his medicines from us today. His morphine mEq is 65 MMEs. There is a recent fill from his surgeon, which we discussed today to have no further medications from his surgeon postoperatively since he is now 6 months postop. The patient is agreeable with this. There is a drug screen on the chart that is appropriate for his medications. PHYSICAL EXAMINATION: GENERAL: This is alert and orientated 65-year-old gentleman who appears his stated age, placing his current pain score at 5/10 today. His affect is appropriate and speech is fluent. HEENT: Normocephalic, atraumatic. Extraocular eye muscles are intact. He is wearing a mask. NECK: He has tenderness in his cervical spine with decreased range of motion. He has some discomfort in his left shoulder, but able to move it in all planes for range of motion. EXTREMITIES: Upper extremity strength is symmetrical at 5/5 with slight decrease on the left. Lower extremity strength is judged to be at 5/5. He does have tenderness in his tailbone and walking with a slightly antalgic gait, uses armrest to raise from the seated position. IMPRESSION: 1. Cervical radiculopathy at the C6-C7 distribution. 2. History of occipital neuralgia. 3. Myofascial pain. 4. History of chronic pain, being treated for complex medical management utilizing opioid medications. 5. History of depression. We reviewed the fact that opiate medications are being used to provide analgesia adequate to support activities of daily living, not attempting to achieve a specific pain score on the 0-10 Visual Analog Scale. The current opiate medications are providing sufficient analgesia to allow the patient to participate in activities of daily living. The patient is not exhibiting any aberrant behavior suggestive of drug diversion. The patient is not having any adverse reactions to medications. The patient is not suffering from daytime somnolence or mental acuity changes. The patient is managing opiate-induced constipation with appropriate [id number] agents and dietary considerations. The patient was counseled on concern for caution with operating a motor vehicle while using opiate medications. PLAN: 1. We discussed treatment options with the patient today. The patient is continuing physical therapy and recovering from his recent left shoulder tendon repair and rotator cuff. We discussed with him to no longer receive [address] [address] PAIN MANAGEMENT CONSULTATION Name: SURY HALEY Room #: REG [facility]#: [id number] Admission: 08/01/20 Attend Phys: Astrid Chappell Discharge: Date of : 59 Report #: [id number] Disla, he is almost 6 months postop and should not be getting any further medications due to the contract that he has with Dr. Wesley. 2. We discussed tapering him with his opioids in the future. Per the patient's request that we will decrease the amount of hydrocodone that he gets today to 120 from previously getting 150 per month. Scripts will be sent electronically by Dr. Wesley for his fentanyl 12 mcg patch and his hydrocodone 7.5/325 for 3 months. 3. The patient will return in 3 months or if he decides to have a cervical epidural steroid injection, which he finds beneficial for his neck pain before then, he will schedule that with Dr. Wesley. The patient is seen in collaboration with Dr. Wesley today. <ELECTRONICALLY SIGNED> By: Astrid Chappell 08/01/20 1227 [id number] Astrid Chappell /nt
== END ==
LOC: PAIN 06:48
PROVIDERS: ATTEND Clinical Nurse Specialist Adult Health
DX: M54.12 Radiculopathy, cervical region (principal); M25.512 Pain in left shoulder; M79.10 Myalgia, unspecified site; F11.20 Opioid dependence, uncomplicated; F32.9 Major depressive disorder, single episode, unspecified; Z88.8 Allergy status to other drugs, medicaments and biological substances; Z79.899 Other long term (current) drug therapy; Z86.61 Personal history of infections of the central nervous system

== ENCOUNTER → 2020-10-24 | Outpatient (CLI) | payer BC, OTHER ==
[~2020-10-24] VITALS: Ht 175.3 cm; Wt 85.7 kg
[~2020-10-24] MED LIST changes: +ADDERALL 30 MG30 MG PO; +VOLTAREN GEL 1100 G1 TOP
--- NOTE | 2020-10-24 08:26 | NUR ---
Pain Clinic Assessment: 1. History of Osteoarthritis: Left Upper Extremity NECK History of Rheumatoid Arthritis: DENIES 2. Height: ft. in. cm. Weight: lb. oz. kg. Patient's BMI: 3. Vital Signs: BP: Pulse: Resp: Temp: 02 Sat: ECG Mon: 4. Pain Intensity: 7 5. Fall Risk: Dizziness: Needs help standing or walking: Fallen in the last 3 months: Fall risk comments: 6. Patient on Blood Thinner: None 7. History of Hypertension: Y 8. Opioid Therapy greater than 6 weeks: Y Opiate Contract Signed: 02/21/16 9. Risk Assessment Tool Provided: 1-low risk 10. Functional Assessment Tool: 11. Recreational Drug Use: Never Drug Type: Tobacco Use: Never Smoker Tobacco Type: Amount or Packs/day: How Many Years: Alcohol Use: No Frequency: Quant:
[2020-10-24 08:29] VITALS: BP 147/85
--- NOTE | 2020-10-25 16:02 | HPC ---
[facility] [address] [address] PAIN MANAGEMENT CONSULTATION Name: SURY HALEY [id number] Admission: 10/24/20 Attend Phys: Astrid Chappell Discharge: Date of : 59 Report #: [id number] THIS REPORT FOR: cc: Anthony Cardenas MD, Jeffrey A. MD Hocker, Amanda CNS ~ DATE OF SERVICE: 10/24/2020 CHIEF COMPLAINT: Cervical radiculopathy. HISTORY OF PRESENT ILLNESS: This is a 65-year-old gentleman who returns to the pain clinic today for renewal of his opioid medications. Today, he is reporting a pain score higher than his average of 7/10, reports most problematic area is in his neck and back of his head. He has had previous surgeries and has continued discomfort in his cervical region. Today, he reports most of his pain is in his cervical area and his arms bilaterally, greater on the left than the right. He has been working out in the yard that did aggravate his pain as he describes it as an aching, numbness, sharp sensation. He believes his medications are beneficial in controlling his pain as well as exercising. He has been going to the gym, doing daily stretching exercises that he learned in rehab as well as walking. He continues to want to try to decrease his medications this year and hopefully wean off of them if that is possible, though he understands he may be on a low dose. Today, he would like refills of his fentanyl and hydrocodone. He denies somnolence or constipation as a result of his opioid medications. ALLERGIES: MORPHINE. CURRENT LIST OF MEDICATIONS: Adderall, hydrocodone 7.5/325, fentanyl 12 mcg patch, diclofenac gel, bupropion, trazodone, Cymbalta, Lamictal, hydrochlorothiazide, albuterol, Advair, and Zestril. PATIENT'S PQRS: 1. He has osteoarthritic changes in his neck and upper extremities. Denies any rheumatoid arthritis. 2. Height is 5 feet 9 inches, weight is 189. Vital signs; blood pressure 147/85, pulse is 105, respirations 16, oxygen sat is 98%. 3. Pain score is 7/10. 4. Denies dizziness, does not need assistance with walking, has not fallen in the last 3 months. 5. The patient is not on any blood thinners, but does take medicine for hypertension. 6. Opioid therapy is greater than 6 weeks; therefore, an opioid signed contract is on the chart. Risk assessment is low. Functional assessment is 70. 7. Recreational drug use, he denies. He is not a smoker and does not drink alcohol. [address] [address] PAIN MANAGEMENT CONSULTATION Name: SUDHASURY DANIELITO Room #: REG CL Tita#: [id number] Admission: 10/24/20 Attend Phys: Astrid Chappell Discharge: Date of : 59 Report #: [id number] According to the prescription monitoring system, the patient is filling in a timely fashion. His morphine milliequivalent is 60 MME. There is a drug screen on his chart that is appropriate for his medications. PHYSICAL EXAMINATION: GENERAL: This is alert and orientated 65-year-old gentleman who appears his stated age, rating his pain score at 7/10. His affect is appropriate. He is a good historian. HEENT: Normocephalic, atraumatic. Extraocular eye muscles are intact. He is wearing a mask. NECK: He has tenderness in his cervical spine with decreased range of motion due to previous surgeries. Pain radiates into his arms bilaterally following the C6-C7 dermatomal distribution greater on the left than the right. EXTREMITIES: His upper extremity strength are symmetrical at 5/5, though slight decrease in his bicep tendon strength. The lower extremity strength is judged to be symmetrical at 5/5. He has a slightly antalgic gait. IMPRESSION: 1. Cervical radiculopathy at the C6-C7 dermatomal distribution. 2. History of occipital neuralgia. 3. Myofascial pain. 4. Complicated medical management under written agreement utilizing scheduled opioids. 5. History of depression. We reviewed the fact that opiate medications are being used to provide analgesia adequate to support activities of daily living, not attempting to achieve a specific pain score on the 0-10 Visual Analog Scale. The current opiate medications are providing sufficient analgesia to allow the patient to participate in activities of daily living. The patient is not exhibiting any aberrant behavior suggestive of drug diversion. The patient is not having any adverse reactions to medications. The patient is not suffering from daytime somnolence or mental acuity changes. The patient is managing opiate-induced constipation with appropriate qjye-hsi-khnzxpu agents and dietary considerations. The patient was counseled on concern for caution with operating a motor vehicle while using opiate medications. A physical exam was performed and the patient's functional status was evaluated. All patients with back pain were advised against the bed rest greater than 4 days and were advised to return to normal activities. Pain score assessment was noted and the treatment plan was reviewed with the patient. All current medications, both prescribed and OTC were reviewed and reconciled on the electronic medical record. Tobacco screening was accomplished and smoking cessation was advised when indicated. BMI was noted and diet/exercise modification was recommended for all patients following outside normal [facility] [address] [place] [address] PAIN MANAGEMENT CONSULTATION Name: SURY HALEY Room #: REG [facility]#: [id number] Admission: 10/24/20 Attend Phys: Astrid SHANDRA Chappell Discharge: Date of : 59 Report #: [id number] parameters. I reviewed with the patient today their responsibilities to safeguard prescription medications, reviewed their responsibility to utilize medications only as prescribed by the physician. They are to seek and receive pain medications only from 1 physician group ( [facility]). They are to use 1 pharmacy and keep the clinic informed if they change pharmacies. Their responsibilities include making followup visits in a timely fashion and to avoid abrupt discontinuation of medication usage. Their responsibilities further include bringing their medications (bottles from the pharmacy with residual pills) to the visit for possible confirmation of pill counts and the patient understands it is their responsibility to submit to random drug screens to ensure both that the medications prescribed are present, and that no other controlled substances are present. All prescriptions provided today were generated electronically. PLAN: 1. We discussed treatment options with the patient today. The patient continues to request to wean off his opioid medications. We determined a plan at his next visit. We will stop his fentanyl patches and increase his hydrocodone slightly to prevent significant withdrawal symptoms. The patient will then utilize hydrocodone for several months and then slowly decrease the dose of those medications. Today, we will continue him on his current dose of fentanyl 12 mcg patch and hydrocodone 7.5/325, #120. This will be sent electronically to his pharmacy for 3 months. At his last visit, we did decrease his medications and we will continue to decrease slowly as stated above. 2. The patient has not had his COVID vaccine. He did recently have an MMR injection. I encouraged him to wait 2 weeks between vaccines. 3. We did discuss continuing strengthening exercises and walking and avoid strenuous back exercises. Time spent with the patient in consultation, reviewing recent studies and clinical notes and physician reports, physical examination and correlation of findings and medical documentation to determine possible treatments 15 minutes. Time spent in preparation for appointment reviewing prescription monitoring system, reviewing previous records and proposed treatment options and current medications 5 minutes. Time spent preparing and sending electronic prescriptions with collaborating physician and documentation of visit and plan of treatment [address] [address] PAIN MANAGEMENT CONSULTATION Name: SURY HALEY Room #: REG [facility]#: [id number] Admission: 10/24/20 Attend Phys: Astrid Chappell Discharge: Date of : 59 Report #: [id number] Total time spent 28 minutes. <ELECTRONICALLY SIGNED> By: Astrid Chappell 10/25/20 [id number] Astrid Chappell /nt
== END ==
LOC: PAIN 06:40
PROVIDERS: ATTEND Clinical Nurse Specialist Adult Health
DX: M54.12 Radiculopathy, cervical region (principal); M79.10 Myalgia, unspecified site; F11.20 Opioid dependence, uncomplicated; Z86.61 Personal history of infections of the central nervous system; F32.9 Major depressive disorder, single episode, unspecified; Z88.8 Allergy status to other drugs, medicaments and biological substances; Z79.899 Other long term (current) drug therapy

== ENCOUNTER → 2021-01-16 | Outpatient (CLI) | payer BC, OTHER ==
[~2021-01-16] VITALS: Ht 175.3 cm; Wt 86.6 kg
[~2021-01-16] MED LIST changes: +HYDROCODONE-AP1 EACH PO
[2021-01-16 08:57] VITALS: BP 150/71
--- NOTE | 2021-01-16 09:07 | NUR ---
Pain Clinic Assessment: 1. History of Osteoarthritis: Left Upper Extremity NECK History of Rheumatoid Arthritis: DENIES 2. Height: 5 ft. 9 in. 175.3 cm. Weight: 191.0 lb. oz. 86.637 kg. Patient's BMI: 28.2 3. Vital Signs: BP: 150/71 Pulse: 114 Resp: 16 Temp: 02 Sat: 97 ECG Mon: 4. Pain Intensity: 8 5. Fall Risk: Dizziness: N Needs help standing or walking: N Fallen in the last 3 months: N Fall risk comments: 6. Patient on Blood Thinner: None 7. History of Hypertension: Y 8. Opioid Therapy greater than 6 weeks: Y Opiate Contract Signed: 02/21/16 9. Risk Assessment Tool Provided: 1-low risk 10. Functional Assessment Tool: 11. Recreational Drug Use: Never Drug Type: Tobacco Use: Never Smoker Tobacco Type: Amount or Packs/day: How Many Years: Alcohol Use: No Frequency: Quant:
--- NOTE | 2021-01-17 07:54 | HPC ---
[facility] [address] [address] PAIN MANAGEMENT CONSULTATION Name: SURY HALEY Room #: REG [facility].#: [id number] Admission: 01/16/21 Attend Phys: Astrid Chappell Discharge: Date of : 59 Report #: [id number] THIS REPORT FOR: cc: Anthony Cardenas MD,Anthony Chappell,Astrid DEVI ~ DOC #: [id number] cc: Anthony Cardenas MD, MD Astrid Gong, JEEPER OPERATOR DATE OF SERVICE: 01/16/2021 CHIEF COMPLAINT: Cervical radiculopathy. HISTORY OF PRESENT ILLNESS: This is a 65-year-old gentleman who returns to the pain clinic today to discuss his ongoing pain management and for renewal of his medications. Today, he is reporting his pain score 7/10, most significantly in his left hand. He complains of significant numbness in his ring and pinky finger, though it is not radiating from his neck down his arm per his report. He does have cervical pain from previous surgeries and ongoing left shoulder pain. He describes his pain as an aching, sharp, numbness and tingly sensation that is worse with activity such as mowing the lawn or yard work. Overall, he believes his current medication has been beneficial and would like to continue to discuss tapering these medications. The patient does report that he is scheduled for an MRI of his elbow on the 12/25/2020. Last year, he did have a left shoulder repair and has been having ongoing issues in his elbow. He reports possibly having a tendon issue and is following up with his surgeon who had scheduled this MRI. ALLERGIES: MORPHINE. CURRENT LIST OF MEDICATIONS: Diclofenac gel, fentanyl patch 12 mcg, hydrocodone 7.5/325 p.r.n., Adderall, bupropion, trazodone, Cymbalta, hydroxyzine, Lamictal, hydrochlorothiazide, albuterol, Advair and lisinopril. PQRS: 1. He has osteoarthritis in his upper extremities and neck. Denies any rheumatoid arthritis. 2. Height is 5 feet 9 inches, weight is 191, BMI is 28. 3. Vital signs 150/71, pulse is 114, respirations 16. 4. Oxygen sat is 97%. 5. Pain score 7/10. 6. Denies dizziness does not need help walking or standing, has not fallen in the last 3 months. 7. The patient is not on any blood thinners, but does have a history of hypertension. Opioid therapy is greater than 6 weeks; therefore, an opioid [address] [address] PAIN MANAGEMENT CONSULTATION Name: SURY HALEY Room #: REG CL Tita#: [id number] Admission: 01/16/21 Attend Phys: Astrid Chappell Discharge: Date of : 59 Report #: [id number] signed contract is on the chart. 8. Risk Assessment: Low. 9. Functional Assessment: . 10. Recreational drug use, he denies. He is not a smoker, does not drink alcohol. According to the prescription monitoring system, he is filling appropriately and a timely fashion. He is due to fill his medications today. His morphine mEq according to the CDC standards is 60 MME. There is a urine drug screen from last year and we will recheck that at his next visit. PHYSICAL EXAMINATION: GENERAL: This is alert and orientated, slightly nervous appearing 65-year-old gentleman who rates his pain score 7/10 today. His affect is appropriate and he is a good historian. HEENT: Normocephalic, atraumatic. Extraocular eye muscles are intact. He is wearing a mask. MUSCULOSKELETAL: Neck - He has tenderness in his cervical spine with decreased range of motion due to previous surgeries. He has numbness and tingling in his ring and pinky fingers on his left hand that follow the C8 cervical dermatomal distribution Tender to the touch on the anterior aspect of his left elbow. EXTREMITIES: Upper extremity strength is 5/5, slight decrease in his biceps tendon strength. He has an antalgic gait. Lower extremity strength is symmetrical at 5/5. IMPRESSION: 1. Cervical radiculopathy at the C6, C7, C8 dermatomal distribution. 2. Ongoing biceps tendon pain in the left arm. 3. Myofascial pain. 4. Complicated medical management under terms of written opioid agreement. 5. History of depression. We reviewed the fact that opiate medications are being used to provide analgesia adequate to support activities of daily living, not attempting to achieve a specific pain score on the 0-10 Visual Analog Scale. The current opiate medications are providing sufficient analgesia to allow the patient to participate in activities of daily living. The patient is not exhibiting any aberrant behavior suggestive of drug diversion. The patient is not having any adverse reactions to medications. The patient is not suffering from daytime somnolence or mental acuity changes. The patient is managing opiate-induced constipation with appropriate hckn-gst-nvpdsum agents and dietary considerations. The patient was counseled on concern for caution with operating a motor vehicle while using opiate medications. PLAN: 1. We discussed treatment options with the patient today. The patient is [facility] [address] [place] [address] PAIN MANAGEMENT CONSULTATION Name: SURY HALEY Room #: REG [facility]#: [id number] Admission: 01/16/21 Attend Phys: Astrid Chappell Discharge: Date of : 59 Report #: [id number] scheduled for an MRI of his left elbow to determine if he has a biceps tendon tear with possible surgery. He will have those results faxed to our office. 2. We discussed his ongoing taper of medications; it was his wish to go off his fentanyl patches. Today we discussed this in great length. Greater than 10 minutes spent just discussing this taper schedule. Today, we will stop his fentanyl patches. We will start hydrocodone 10/325 enabling him 5 tablets a day. This is a slight increase in his hydrocodone strength, but overall decreased from his 60 MME to 50 MME total dose. We will continue this medication for the next 3 months and then hopefully be able to taper him again at our next visit back to 4 tablets of hydrocodone a day and our goal dose is to decrease back to hydrocodone 7.5/325. The patient is agreeable with this reduction and taper. 3. The patient is scheduled to go to [place] in 2 weeks. I encouraged him to keep his medications with him at all times when he travels and locked up in the room as to keep them safeguarded. The patient will follow up in 3 months. Time spent with the patient in consultation, reviewing pertinent imaging, reviewing recent studies and clinical notes and physician reports, physical examination, and correlation of findings and medical documentation to determine possible treatment option - 16 minutes. Time spent preparing for appointment, reviewing prescription monitoring system reports, reviewing previous records and proposed treatment options, reviewing current medications - 5 minutes. Time spent for preparation and sending electronic prescriptions with collaborating physician, Dr. Halle Wesley, documentation of visit and plan of treatment - 5 minutes. Total time spent - 26 minutes. PHILLIP Garibay/SRIRAM <ELECTRONICALLY SIGNED> By: Astrid Chappell 01/17/21 [id number] 00 Astrid Chappell /nt
== END ==
LOC: PAIN 06:55
PROVIDERS: ATTEND Clinical Nurse Specialist Adult Health
DX: M54.12 Radiculopathy, cervical region (principal); M79.602 Pain in left arm; M79.18 Myalgia, other site; F32.9 Major depressive disorder, single episode, unspecified; Z88.5 Allergy status to narcotic agent; Z79.891 Long term (current) use of opiate analgesic; Z79.899 Other long term (current) drug therapy

== ENCOUNTER → 2021-04-10 | Outpatient (CLI) | payer BC, OTHER ==
[~2021-04-10] VITALS: Ht 175.3 cm; Wt 86.5 kg
[~2021-04-10] MED LIST changes: +VOLTAREN ARTHRI20 GM TOP
[2021-04-10 08:16] VITALS: BP 136/76
--- NOTE | 2021-04-10 08:36 | NUR ---
Pain Clinic Assessment: 1. History of Osteoarthritis: Left Upper Extremity NECK History of Rheumatoid Arthritis: DENIES 2. Height: 5 ft. 9 in. 175.3 cm. Weight: 190.6 lb. oz. 86.456 kg. Patient's BMI: 28.1 3. Vital Signs: BP: 136/76 Pulse: 90 Resp: 16 Temp: 02 Sat: 100 ECG Mon: 4. Pain Intensity: 9 5. Fall Risk: Dizziness: N Needs help standing or walking: N Fallen in the last 3 months: Y Fall risk comments: 6. Patient on Blood Thinner: None 7. History of Hypertension: Y 8. Opioid Therapy greater than 6 weeks: Y Opiate Contract Signed: 02/21/16 9. Risk Assessment Tool Provided: 1-low risk 10. Functional Assessment Tool: 11. Recreational Drug Use: Never Drug Type: Tobacco Use: Never Smoker Tobacco Type: Amount or Packs/day: How Many Years: Alcohol Use: No Frequency: Quant:
== END ==
LOC: PAIN 06:55
PROVIDERS: ATTEND Anesthesiology Pain Medicine
DX: G89.29 Other chronic pain (principal); M54.12 Radiculopathy, cervical region; F34.89 Other specified persistent mood disorders; M79.18 Myalgia, other site; M54.81 Occipital neuralgia; Z79.899 Other long term (current) drug therapy; Z88.8 Allergy status to other drugs, medicaments and biological substances

== ENCOUNTER → 2021-07-03 | Outpatient (CLI) | payer BC, OTHER ==
[~2021-07-03] VITALS: Ht 175.3 cm; Wt 86.3 kg
[2021-07-03 08:59] VITALS: BP 135/78
--- NOTE | 2021-07-03 09:03 | NUR ---
Pain Clinic Assessment: 1. History of Osteoarthritis: Left Upper Extremity NECK History of Rheumatoid Arthritis: DENIES 2. Height: 5 ft. 9 in. 175.3 cm. Weight: 190.2 lb. oz. 86.274 kg. Patient's BMI: 28.1 3. Vital Signs: BP: 135/78 Pulse: 101 Resp: 18 Temp: 02 Sat: 98 ECG Mon: 4. Pain Intensity: 9 5. Fall Risk: Dizziness: Y Needs help standing or walking: N Fallen in the last 3 months: N Fall risk comments: 6. Patient on Blood Thinner: None 7. History of Hypertension: Y 8. Opioid Therapy greater than 6 weeks: Y Opiate Contract Signed: 02/21/16 9. Risk Assessment Tool Provided: 1-low risk 10. Functional Assessment Tool: 11. Recreational Drug Use: Never Drug Type: Tobacco Use: Never Smoker Tobacco Type: Amount or Packs/day: How Many Years: Alcohol Use: No Frequency: Quant:
== END ==
LOC: PAIN 08:26
PROVIDERS: ATTEND Clinical Nurse Specialist Adult Health
DX: M54.12 Radiculopathy, cervical region (principal); M54.81 Occipital neuralgia; F34.89 Other specified persistent mood disorders; Z88.8 Allergy status to other drugs, medicaments and biological substances; Z79.899 Other long term (current) drug therapy

== ENCOUNTER → 2021-07-05 | Outpatient (CLI) | payer BC, OTHER ==
[~2021-07-05] VITALS: Ht 175.3 cm; Wt 86.2 kg
[2021-07-05 09:16] VITALS: BP 134/89
--- NOTE | 2021-07-05 09:27 | NUR ---
Pain Clinic Assessment: 1. History of Osteoarthritis: Left Upper Extremity NECK History of Rheumatoid Arthritis: DENIES 2. Height: 5 ft. 9 in. 175.3 cm. Weight: 190.0 lb. oz. 86.184 kg. Patient's BMI: 28.0 3. Vital Signs: BP: 134/89 Pulse: 89 Resp: 14 Temp: 02 Sat: 98 ECG Mon: 4. Pain Intensity: 9 5. Fall Risk: Dizziness: N Needs help standing or walking: N Fallen in the last 3 months: N Fall risk comments: 6. Patient on Blood Thinner: None 7. History of Hypertension: Y 8. Opioid Therapy greater than 6 weeks: Y Opiate Contract Signed: 02/21/16 9. Risk Assessment Tool Provided: 1-low risk 10. Functional Assessment Tool: 11. Recreational Drug Use: Never Drug Type: Tobacco Use: Never Smoker Tobacco Type: Amount or Packs/day: How Many Years: Alcohol Use: No Frequency: Quant:
== END | disposition home or self-care (01) ==
LOC: PAIN 08:28
PROVIDERS: ATTEND Anesthesiology Pain Medicine
DX: M54.81 Occipital neuralgia (principal); M54.12 Radiculopathy, cervical region; M79.18 Myalgia, other site; I10 Essential (primary) hypertension; F32.9 Major depressive disorder, single episode, unspecified; K21.9 Gastro-esophageal reflux disease without esophagitis; Z98.890 Other specified postprocedural states; Z79.899 Other long term (current) drug therapy; Z87.891 Personal history of nicotine dependence; M19.90 Unspecified osteoarthritis, unspecified site; J45.909 Unspecified asthma, uncomplicated; Z87.19 Personal history of other diseases of the digestive system; Z88.8 Allergy status to other drugs, medicaments and biological substances